=== PATIENT | male | born 1930 | race Caucasian/White ===

== ENCOUNTER 2017-01-20 10:09 | Emergency (ER) | payer MEDICARE ==
--- NOTE | 2017-01-20 12:47 | UC ---
Skin Complaint HPI - HPI Summary HPI Summary: PT HERE WITH WORSENING PAIN AND REDNESS TO LEFT LOWER EXTREMITY SINCE LAST NIGHT. NO FEVER. WAS ADMITT[place] [facility] [place] WITH STREPTOCOCCAL SEPTICEMIA LIKELY DUE TO LLE CELLULITIS. WAS D/C'D WITH KEFLEX AND SX IMPROVED BUT REDNESS NEVER FULLY RESOLVED. HOSPITAL STAY WAS COMPLICATED BY ACUTE RENAL FAILURE AND AFIB. 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 - SON Onset/Duration: Gradual Onset, Lasting Days, Still Present Timing: Constant Onset Severity: Moderate Current Severity: Moderate Pain Intensity: 4 Pain Scale Used: 0-10 Numeric Location: Other - LEFT LOWER LEG Character: Pain, Redness Aggravating: Touch Alleviating: Nothing Associated Signs & Symptoms: Positive: Negative - Allergy/Home Medications Allergies/Adverse Reactions: Allergies Allergy/AdvReac Type Severity Reaction Status Date / Time No Known Allergies Allergy Verified 01/20/17 11:28 Review of Systems Constitutional: Negative Skin: Other - ERYTHEMA LLE Respiratory: Negative Cardiovascular: Negative Gastrointestinal: Negative Musculoskeletal: Edema All Other Systems Reviewed And Are Negative: Yes PMH/Surg Hx/FS Hx/Imm Hx Endocrine History Of: Denies: Diabetes, Thyroid Disease Cardiovascular History Of: Reports: Cardiac Disorders, Hypertension Denies: Pacemaker/ICD Respiratory History Of: Denies: COPD Neurological History Of: Reports: CVA - Surgical History Surgical History: Yes Surgery Procedure, Year, and Place: Cataract Surgery; Right Hand Index Finger Surgery - Family History Known Family History: Positive: Cardiac Disease - [place] (father) - Social History Alcohol Use: None Substance Use Type: None Smoking Status (MU): Never Smoked Tobacco - Immunization History Most Recent Influenza Vaccination: Fall 2015 Most Recent Tetanus Shot: Unknown Most Recent Pneumonia Vaccination: 2016 Physical Exam Triage Information Reviewed: Yes Appearance: Well-Appearing, No Pain Distress, Well-Nourished Vital Signs: Initial Vital Signs Temp 97.7 F 01/20/17 11:22 Pulse 56 01/20/17 11:22 Resp 18 01/20/17 11:22 BP 137/51 01/20/17 11:22 Pulse Ox 98 01/20/17 11:22 Vital Signs Reviewed: Yes Eyes: Positive: Conjunctiva Clear ENT: Positive: Hearing grossly normal Neck: Positive: Supple Respiratory: Positive: No respiratory distress, No accessory muscle use Cardiovascular: Positive: Pulses Normal Abdomen Description: Positive: Soft Musculoskeletal: Positive: Edema @ - 1+ PITING EDEMA LLE, Other: - PALPABLE NODULES LEFT CALF. Neurological: Positive: Alert Psychological: Positive: Age Appropriate Behavior Skin: Positive: Other - ERYTHEMATOUS, TENDER ANTERIOR LLE. Course/Dx - Course Course Of Treatment: GIVEN RECENT HOSPITALIZATION FOR SEPSIS DUE TO LLE CELLULITIS WHICH HAS NOW RETURNED AND CONCERN FOR PHLEBITIS/DVT WILL SEND TO ER FOR FURTHER EVAL. - Diagnoses Provider Diagnoses: LEFT LOWER EXTREMITY CELLULITIS - Physician Notification/Consults Discussed Patient Care With: DR. ANA PETERSEN Time Discussed With Above Provider: 12:40 - TO [facility] [place] [facility] [place] PRIVATE CAR Instructed by Provider To: Will See In ED Discharge - Discharge Plan Condition: Stable Disposition: AGAINST MEDICAL ADVICE Referrals: Vel Rodrigez MD [Medical Doctor] -
[2017-01-20 13:19] VITALS: BP 116/59
== END 2017-01-20 12:55 | disposition left against medical advice (07) ==
LOC: UCEAST 10:09
DX: L03.116 Cellulitis of left lower limb (principal); R60.0 Localized edema; I10 Essential (primary) hypertension; Z86.73 Personal history of transient ischemic attack (TIA), and cerebral infarction without residual deficits; Z98.49 Cataract extraction status, unspecified eye
CPT/HCPCS: 99212; G0463

== ENCOUNTER 2017-01-20 13:28 | Inpatient (IN) | payer MEDICARE ==
[2017-01-20] MEDS ORDERED: NS 0.9% 1000 ML* 1,000 ML IV ONE (15:47)
[2017-01-20] MEDS ORDERED: Vancomycin(*) 1,000 MG in NS 0.9% 250 ML* 250 ML IVPB ONE (15:48)
[2017-01-20 16:43] LABS: Hematocrit 39 % (42-52); Mean Corpuscular HGB Conc 33 g/dl (31-36); Mean Corpuscular Hemoglobin 31 pg (27-31); Mean Corpuscular Volume 94 fL (80-94); Mean Platelet Volume 9 um3 (7.4-10.4); Red Blood Count 4.14 10^6/ul (4.0-5.4); Red Cell Distribution Width 14 % (10.5-15); White Blood Count 8.4 10^3/ul (3.5-10.8)
[2017-01-20 17:03] LABS: Albumin 3.5 g/dL (3.2-5.2); BUN/Creatinine Ratio 17.1 (8-20); C Reactive Protein 39.35 mg/L (< 5.00); EGFR African American 68.1 (>60); EGFR Non-African American 52.9 (>60); Globulin 3.7 g/dL (2-4); Potassium 4.1 mmol/L (3.5-5.0); Total Bilirubin 0.3 mg/dL (0.2-1.0); Total Protein 7.2 g/dL (6.4-8.9)
[2017-01-20 17:04] LABS: Troponin I 0.01 ng/mL (<0.04)
[2017-01-20] MEDS ORDERED: Acetaminophen TAB* 325 MG PO PRN (18:40)
[2017-01-20] MEDS ORDERED: Morphine INJ* 2 MG/ML 1 ML SYRINGE IV PRN (18:40)
[2017-01-20] MEDS ORDERED: oxyCODONE/Acetamin 5/325 MG* TAB PO PRN (18:40)
[2017-01-20] MEDS ORDERED: Vancomycin(*) 1,000 MG in NS 0.9% 250 ML* 250 ML IVPB SCH (19:00)
--- NOTE | 2017-01-20 19:30 | RAD ---
HISTORY: Redness of the distal calf COMPARISONS: January 02, 2017 TECHNIQUE: Multiple transverse and longitudinal ultrasound images were obtained of the left lower extremity from the level of the common femoral vein inferiorly through to the infrapopliteal veins using grayscale, color Doppler, and spectral Doppler imaging with and without compression and with augmentation. Comparison images were obtained of the contralateral common femoral vein. FINDINGS: This study is technically limited VEINS: There is questionable nonocclusive thrombus of the peroneal vein without extension into the popliteal or suprapopliteal venous system. The remainder of the venous system of the left lower extremity is compressible throughout its course, with normal flow on color Doppler imaging and normal response to augmentation on spectral Doppler imaging. SOFT TISSUES: There is subcutaneous edema of the calf OTHER FINDINGS: None. IMPRESSION: THERE IS QUESTIONABLE NONOCCLUSIVE THROMBUS OF THE PERONEAL VEIN WITHOUT EXTENSION INTO THE POPLITEAL OR SUPRAPOPLITEAL VENOUS SYSTEM
[2017-01-20] MEDS: Apixaban* 5 MG TAB PO SCH (21:18)
[2017-01-20] MEDS: Dronedarone TAB* 400 MG PO SCH (21:18)
[2017-01-20] MEDS ORDERED: Vancomycin per Pharmacy* NOTE FOLLOW UP PRN (21:43)
[2017-01-20] MEDS ORDERED: Vancomycin(*) 500 MG in NS 0.9% 250 ML* 250 ML IVPB ONE ×2 (22:00→22:30)
--- NOTE | 2017-01-20 23:26 | HP ---
HISTORY AND PHYSICAL: DATE OF ADMISSION: 01/20/17 PRIMARY CARE PROVIDER: Dr. Rosales. CHIEF COMPLAINT: Left leg cellulitis. HISTORY OF PRESENT ILLNESS: Mr. Wong is an 86-year-old male who was discharged from our facility on 01/08/17 with a diagnosis of streptococcus septicemia due to left lower extremity cellulitis. The patient at that point had blood cultures positive for Streptococcus agalactiae. He had a KELLI that showed [id number] aortic stenosis but no endocarditis. He was treated with IV antibiotics during the hospital stay and was placed on Keflex for a total of 7 days after discharge. His Keflex was just discontinued 3 days ago. The patient stated that the erythema on the left leg that was associated with the cellulitis still continues to be somewhat present but too much to left lower extent. He stated that he had a patch of redness of approximately 5 cm in diameter for the past 2 weeks. For the past 3 days, when the antibiotics were stopped, the patient developed increased warmth in the area, increased swelling in the area, as well as erythema with streaking. Currently, the patient 's area of erythema is approximately 20 to 30 cm in diameter. The patient also stated that his left leg had been swollen for the past 2 weeks. He had not been febrile at home and otherwise he feels at his baseline. He is somewhat deconditioned and he stated that he is doing physical therapy at home. The patient is currently placed originally for observation with a diagnosis of left lower extremity cellulitis. He has already received vancomycin in the ED. PAST MEDICAL HISTORY: 1. Obstructive sleep apnea, on CPAP. 2. 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 3. History of atrial fibrillation during his last hospital stay that ended on 01/08/17. The patient was cardioverted to sinus rhythm and anticoagulated ____ _ Eliquis. 4. History of elevated troponin during the last hospital stay, most likely related to demand ischemia. MEDICATIONS AT HOME: Include: 1. Eliquis 5 mg b.i.d. 2. Multaq 400 mg b.i.d. FAMILY HISTORY: Positive for mom who at the age of 70 of colon cancer and father at the age of 65 secondary to heart attack. SOCIAL HISTORY: The patient denies any tobacco, alcohol, or drug use. 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 He is a and he lives currently with his son. Both sons, and Gaetano, are his healthcare proxies. REVIEW OF SYSTEMS: Please see history of present illness. In addition to the above mentioned, the patient denies any chest pain or fevers. He stated that he was short of breath and feeling weak when he had atrial fibrillation in the hospital and he denies those symptoms right now. His left lower extremity had been swollen for the past 2 weeks. All the remaining 14 systems were reviewed with the patient and were otherwise negative. PHYSICAL EXAMINATION GENERAL: The patient is a very pleasant 86-year-old male, who is in no acute distress. Alert, awake, and oriented x3. VITAL SIGNS: Blood pressure of 134/40, heart rate of 67 and , respiratory rate 16, oxygen saturation 98% on room air, temperature 98.9. HEENT: Atraumatic, normocephalic. Eyes: Pupils equal and reactive to light and accommodation. Oropharynx: Clear. Mucosa moist. NECK: Supple. No JVD, no bruits bilaterally. RESPIRATORY: Clear to auscultation bilaterally. CARDIOVASCULAR: Regular rhythm. There is a 3/6 systolic ejection murmur noted on auscultation of the left upper sternal border. ABDOMEN: Soft, nontender. Bowel sounds present in all 4 quadrants. EXTREMITIES: There is left lower extremity edema and that is the left ankle edema extending to the left knee. There is also left foot edema. There is no other edema noted. NEUROLOGIC: Speech clear. Cranial nerves II through XII grossly intact. Motor strength is 5/5 bilaterally. SKIN: On evaluation of the skin, the patient has a small area of ecchymosis on the tip of the left second toe, possibly due to trauma. He has an erythema on the anterior aspect of the distal lower extremity in the diameter of approximately 30 cm. The area is tender to touch. There are no loculated areas. DIAGNOSTIC STUDIES/LAB DATA: Shows sodium of 136, potassium of 4.1, chloride 107, carbon dioxide 23, BUN 22, creatinine 1.29. Please note the patient's creatinine in the past had ranged between 1.1 to 1.3. CBC: White blood cell count of 8.4, hemoglobin of 13.0, hematocrit of 39, platelets of 263. Blood cultures are pending at the time of dictation. Left lower extremity venous Doppler study is pending at the time of dictation. ASSESSMENT AND PLAN: Recurrent cellulitis in a patient who has a history of Streptococcus agalactiae septicemia, treated within the past 2 weeks. The patient is going to be placed on overnight observation. Treated with vancomycin. Blood cultures are obtained and ID consult is going to be obtained in the morning. We will also check lower extremity Dopplers to rule out deep venous thrombosis. In regards to history of atrial fibrillation, the patient is going to be placed on telemetry monitored bed for time being, although he has been asymptomatic ever since his discharge. Eliquis and Multaq are going to be continued. In regards to current kidney disease which is mild and chronic, not significantly changed from prior. Obstructive sleep apnea. The patient is going to be continued on his home CPAP. DVT prophylaxis. The patient is going to be placed on Eliquis. We discussed code status with the patient and patient's son present in the room. They both agreed and the patient requests to be a full code. TIME SPENT: Approximately 68 minutes was spent on the admission of this patient , more than half the time was spent [id number] with the patient during the interview and physical exam. CC: Dr. Rosales; Dr. Rodrigez; Dr. Araujo; Dr. Lucero* [id number]/[facility] #: [id number] YASIR
[2017-01-21] MEDS ORDERED: Vancomycin(*) 1,000 MG in NS 0.9% 250 ML* 250 ML IVPB SCH (04:30)
[2017-01-21 06:34] LABS: Hematocrit 39 % (42-52); Hemoglobin 12.6 g/dl (14.0-18.0); Mean Corpuscular HGB Conc 33 g/dl (31-36); Mean Corpuscular Hemoglobin 31 pg (27-31); Mean Corpuscular Volume 95 fL (80-94); Mean Platelet Volume 9 um3 (7.4-10.4); Red Blood Count 4.07 10^6/ul (4.0-5.4); Red Cell Distribution Width 14 % (10.5-15); White Blood Count 9.1 10^3/ul (3.5-10.8)
[2017-01-21 06:37] LABS: Add Diff/Slide Review? Slide Review Added; Comments Flag Yes
[2017-01-21 06:50] LABS: BUN/Creatinine Ratio 16.2 (8-20); Calcium 8.3 mg/dL (8.6-10.3); EGFR African American 76.2 (>60); EGFR Non-African American 59.2 (>60); Potassium 4.4 mmol/L (3.5-5.0)
[2017-01-21] MEDS: Dronedarone TAB* 400 MG PO SCH ×2 (08:52→20:32)
[2017-01-21] MEDS: Apixaban* 5 MG TAB PO SCH ×2 (08:53→20:32)
--- NOTE | 2017-01-21 09:37 | PN ---
Progress Note - Progress Note SOAP: Subjective: DOS: 01/21/17 CC: leg pain HPI: 86 year old man with recent admission for left lower leg cellulitis and Grp B Strep bactermia, improved on IV antibiotics and then keflex which he finished end of last week, continued to improve through the weekend, redness was nearly gone and then had return of redness with calf pain worse with pressure on it and weight bearing. No fever, chills, sweats. Started on vancomycin overnight, this morning redness has receded significantly. No diarrhea or fever here. Objective: [] Vital Signs Temp 36.3 C 01/21/17 07:37 Pulse 55 01/21/17 07:37 Resp 20 01/21/17 08:00 BP 133/43 01/21/17 07:37 Pulse Ox 95 01/21/17 08:00 Intake & Output 01/20/17 01/21/17 01/21/17 18:59 06:59 18:59 Intake Total 250 562 Output Total 0 Balance 250 562 Weight 190 lb 188 lb 9.6 oz Intake: IV Fluids 250 277 IVPB 260 Oral 25 Output: Urine 0 Other: Estimated Void Medium Medium # Bowel Movements 0 1 Estimated Stool Amount Medium # Voids 1 Gen:Awake, no distress Neuro:AAOx3, moves all extremities HEENT:PERLL, MMM Neck:Supple Heart:RRR no murmur Lungs:CTA BL Abd:+BS NTND soft Skin: left lower leg diffuse edema and anterior and posterior 5 cm patch of erythema MSK: no left calf tenderness Laboratory Results - last 24 hr 01/20/17 01/20/17 01/20/17 16:23 16:23 16:23 WBC 8.4 RBC 4.14 Hgb 13.0 L Hct 39 L MCV 94 MCH 31 MCHC 33 RDW 14 Plt Count 263 MPV 9 Neut % (Auto) 52.3 Lymph % (Auto) 29.2 [place] % (Auto) 15.5 H Eos % (Auto) 1.8 Baso % (Auto) 1.2 Absolute Neuts (auto) 4.4 Absolute Lymphs (auto) 2.5 Absolute Monos (auto) 1.3 H Absolute Eos (auto) 0.2 Absolute Basos (auto) 0.1 Absolute Nucleated RBC 0 Nucleated RBC % 0 INR (Anticoag Therapy) 1.37 H Sodium 136 Potassium 4.1 Chloride 107 Carbon Dioxide 23 Anion Gap 6 BUN 22 Creatinine 1.29 H Est GFR ( Amer) 68.1 Est GFR (Non-Af Amer) 52.9 BUN/Creatinine Ratio 17.1 Glucose 86 Lactic Acid Calcium 9.0 Total Bilirubin 0.30 AST 20 ALT 21 Alkaline Phosphatase 67 Troponin I 0.01 C-Reactive Protein 39.35 H Total Protein 7.2 Albumin 3.5 Globulin 3.7 Albumin/Globulin Ratio 0.9 L 01/20/17 01/20/17 01/21/17 16:23 21:24 06:15 WBC 9.1 RBC 4.07 Hgb 12.6 L Hct 39 L MCV 95 H MCH 31 MCHC 33 RDW 14 Plt Count 225 MPV 9 Neut % (Auto) 56.9 Lymph % (Auto) 27.0 [place] % (Auto) 13.2 H Eos % (Auto) 1.8 Baso % (Auto) 1.1 Absolute Neuts (auto) 5.2 Absolute Lymphs (auto) 2.5 Absolute Monos (auto) 1.2 H Absolute Eos (auto) 0.2 Absolute Basos (auto) 0.1 Absolute Nucleated RBC 0 Nucleated RBC % 0 INR (Anticoag Therapy) Sodium Potassium Chloride Carbon Dioxide Anion Gap BUN Creatinine Est GFR ( Amer) Est GFR (Non-Af Amer) BUN/Creatinine Ratio Glucose Lactic Acid 1.4 1.0 Calcium Total Bilirubin AST ALT Alkaline Phosphatase Troponin I C-Reactive Protein Total Protein Albumin Globulin Albumin/Globulin Ratio 01/21/17 06:15 WBC RBC Hgb Hct MCV MCH MCHC RDW Plt Count MPV Neut % (Auto) Lymph % (Auto) [place] % (Auto) Eos % (Auto) Baso % (Auto) Absolute Neuts (auto) Absolute Lymphs (auto) Absolute Monos (auto) Absolute Eos (auto) Absolute Basos (auto) Absolute Nucleated RBC Nucleated RBC % INR (Anticoag Therapy) Sodium 136 Potassium 4.4 Chloride 109 Carbon Dioxide 21 L Anion Gap 6 BUN 19 Creatinine 1.17 Est GFR ( Amer) 76.2 Est GFR (Non-Af Amer) 59.2 BUN/Creatinine Ratio 16.2 Glucose 93 Lactic Acid Calcium 8.3 L Total Bilirubin AST ALT Alkaline Phosphatase Troponin I C-Reactive Protein Total Protein Albumin Globulin Albumin/Globulin Ratio Assessment: 1. left leg cellulitis, recurrence off antibiotics, no deep focus seen on US. Improving 2. Possible politeal vein thrombosis, though was on oral anticoagulant, ? contribution of inflammatory process 3. atrial fibrillation 4. elevated CRP Plan: 1. change vancomycin to ceftriaxone (ordered), will plan on longer course of PO antibiotics on discharge.
[2017-01-21] MEDS: cefTRIAXone VIAL(*) 1,000 MG in NS 0.9% 50 ML* 50 ML IVPB SCH (10:41)
--- NOTE | 2017-01-21 11:01 | PN ---
Subjective Date of Service: 01/21/17 Interval History: Pt feels much better. left leg edema almost resolved and the are of cellulitis has decreased significantly since yesterday noted to have asymtomatic 5 beat V Tach last night Objective Active Medications: Acetaminophen (Tylenol Tab*) 650 mg PO Q4H PRN PRN Reason: FEVER/PAIN Apixaban (Eliquis*) 5 mg PO BID [facility] Last Admin: 01/21/17 08:53 Dose: 5 mg Dronedarone (Multaq Tab*) 400 mg PO BID [facility] Last Admin: 01/21/17 08:52 Dose: 400 mg Ceftriaxone Sodium 1,000 mg/ (Sodium Chloride) 50 mls @ 200 mls/hr IVPB Q24H [facility] Last Admin: 01/21/17 10:41 Dose: 200 mls/hr Morphine Sulfate (Morphine Inj (Syringe)*) 1 mg IV Q4H PRN PRN Reason: PAIN Oxycodone/Acetaminophen (Percocet 5/325 Tab*) 1 tab PO Q4H PRN PRN Reason: Pain Pharmacy Consult (Vancomycin Per Pharmacy*) 1 note FOLLOW UP . PRN PRN Reason: PER PROTOCOL Pharmacy Profile Note (Vancomycin Trough Check) 1 note FOLLOW UP 0430 ONE Stop: 01/22/17 04:31 Vital Signs 01/20/17 01/20/17 01/20/17 19:57 20:00 23:48 Temperature 97.2 F 98.1 F Pulse Rate 60 50 Respiratory 20 16 Rate Blood Pressure 154/51 123/37 (mmHg) O2 Sat by Pulse 98 98 93 Oximetry 01/21/17 01/21/17 01/21/17 03:15 03:17 07:37 Temperature 98.1 F 97.6 F 97.4 F Pulse Rate 55 53 55 Respiratory 16 16 Rate Blood Pressure 130/44 125/41 133/43 (mmHg) O2 Sat by Pulse 96 95 Oximetry 01/21/17 08:00 Temperature Pulse Rate Respiratory 20 Rate Blood Pressure (mmHg) O2 Sat by Pulse 95 Oximetry Oxygen Devices in Use Now: None Appearance: 86 yo M in nAd, aAOx3 Eyes: No Scleral Icterus, PERRLA Ears/Nose/Mouth/Throat: NL Teeth, Lips, Gums, Mucous Membranes Moist Neck: NL Appearance and Movements; NL JVP, Trachea Midline Respiratory: Symmetrical Chest Expansion and Respiratory Effort, Clear to Auscultation Cardiovascular: NL Sounds; No Murmurs; No JVD, RRR Abdominal: NL Sounds; No Tenderness; No Distention, No Hepatosplenomegaly Lymphatic: No Cervical Adenopathy Extremities: No Edema, No Clubbing, Cyanosis Skin: No Nodules or Sclerosis, - - lef leg cellulits decreased to erythema of 10 cm in diam Neurological: Alert and Oriented x 3, NL Muscle Strength and Tone Result Diagrams: 01/21/17 06:15 01/21/17 06:15 Assess/Plan/Problems-Billing Assessment: 86 yo M with h/o PAF(s/p cardioversion early December 2016), DAVID with dx of cellulitis and Strep agalactiae septicemia (d/c'd after neg KELLI and cardioversion on 01/08/17) who was admitted with recurrence of cellulitis - Patient Problems (1) Cellulitis of left lower extremity Comment: Vancomycin changed to Ceftriaxone as per ID Cont inpatient stay till cx neg, then plan for 2-[address] Lucero following. Dopplers show possible nonoclusive partial DVT in left peroneal vein. suspect it was present previously when pt was placed on Eliquis 2 weeks ago for A. fib. Will cont Eliquis (2) Atrial fibrillation Comment: cardioverted 2 weeks ago. In NSR, cont telem 5 beat V. tach noted last night, will check Mg level, cont tlem. cont Multaq (3) CKD (chronic kidney disease) Comment: baseline renal function with creat 1.1-1.2 (4) Obstructive sleep apnea Comment: - Continue home CPAP. (5) DVT prophylaxis Comment: elquis Status and Disposition: OBV changed to inpatient. cont IV antibiotics, awaiting blood cx results.
[2017-01-21 11:10] LABS: Magnesium 2.1 mg/dL (1.9-2.7)
--- NOTE | 2017-01-21 22:28 | ED ---
Ra Vera Matthew, scribed for Julian Shields MD on 01/20/17 at 1608 . Lower Extremity - HPI Summary HPI Summary: An 86 y/o male presents to the ED with gradually worsening left lower extremity pain. The pain is rated 4/10 in severity. The patient finished an Abx course on 01/15. He states that his leg was improving, but began to worsen after finish the Abx. Associated symptoms include erythema and warmth. - History of Current Complaint Chief Complaint: EDExtremityLower Stated Complaint: LEFT LEG CELLULITIS FROM [facility] Time Seen by Provider: 01/20/17 15:19 Hx Obtained From: Patient Onset/Duration: Still Present Severity Initially: Moderate Severity Currently: Moderate Pain Intensity: 4 Pain Scale Used: 0-10 Numeric Timing: Constant Location: Is Discrete @ - left lower extremity Associated Signs And Symptoms: Positive: Redness, Other - warmth Aggravating Factor(s): Nothing Alleviating Factor(s): Other - Abx Able to Bear Weight: Yes - Allergies/Home Medications Allergies/Adverse Reactions: Allergies Allergy/AdvReac Type Severity Reaction Status Date / Time No Known Allergies Allergy Verified 01/20/17 11:28 PMH/Surg Hx/FS Hx/Imm Hx Endocrine/Hematology History: Denies: Hx Diabetes, Hx Thyroid Disease Cardiovascular History: Reports: Hx Hypertension Denies: Hx Pacemaker/ICD Respiratory History: Reports: Hx Seasonal Allergies, Hx Sleep Apnea Denies: Hx Chronic Obstructive Pulmonary Disease (COPD) Musculoskeletal History: Reports: Hx Arthritis Denies: Other Musculoskeletal History Sensory History: Reports: Hx Cataracts, Hx Contacts or Glasses, Hx Eye Injury, Hx Deafness, Hx Hearing Aid, Hx Hearing Problem Opthamlomology History: Reports: Hx Cataracts, Hx Contacts or Glasses, Hx Eye Injury Neurological History: Reports: Hx CVA Denies: Other Neuro Impairments/Disorders Psychiatric History: Denies: Hx Panic Disorder - Surgical History Surgery Procedure, Year, and Place: Cataract Surgery; Right Hand Index Finger Surgery - Immunization History Date of Tetanus Vaccine: PT STATES UNSURE Date of Influenza Vaccine: NONE Infectious Disease History: No Infectious Disease History: Denies: Hx Clostridium Difficile, Hx Hepatitis, Hx of Known/Suspected MRSA, Hx Tuberculosis, Hx Known/Suspected VRE, Traveled Outside the [place] in Last 30 Days - Family History Known Family History: Positive: Cardiac Disease - [place] (father) - Social History Alcohol Use: None Substance Use Type: Reports: None Smoking Status (MU): Never Smoked Tobacco Review of Systems Constitutional: Negative Eyes: Negative ENT: Negative Cardiovascular: Negative Respiratory: Negative Gastrointestinal: Negative Genitourinary: Negative Musculoskeletal: Negative Skin: Other - warm to touch Positive: Rash - left lower extremity Neurological: Negative Psychological: Normal All Other Systems Reviewed And Are Negative: Yes Physical Exam Triage Information Reviewed: Yes Vital Signs On Initial Exam: Initial Vitals Temp Pulse Resp BP Pulse Ox 97.7 F 59 18 153/52 98 01/20/17 13:31 01/20/17 13:31 01/20/17 13:31 01/20/17 13:31 01/20/17 13:31 Vital Signs Reviewed: Yes Appearance: Positive: Well-Appearing, No Pain Distress Skin: Positive: Other - erythema, warmth, and tenderness to palpitation of the left lower extermity; NO signs of abscess Head/Face: Positive: Normal Head/Face Inspection Eyes: Positive: EOMI, JAYA ENT: Positive: Normal ENT inspection Neck: Positive: Supple, Nontender Respiratory/Lung Sounds: Positive: Clear to Auscultation, Breath Sounds Present Cardiovascular: Positive: RRR Abdomen Description: Positive: Nontender, Soft Bowel Sounds: Positive: Present Musculoskeletal: Positive: Strength/ROM Intact Neurological: Positive: Alert, Oriented to Person Place, Time Psychiatric: Positive: Affect/Mood Appropriate Diagnostics - Vital Signs Vital Signs Temp Pulse Resp BP Pulse Ox 01/20/17 14:41 98.3 F 66 18 118/37 100 01/20/17 13:33 97.7 F 57 18 153/52 98 01/20/17 13:31 97.7 F 59 18 153/52 98 - Laboratory Lab Results: Lab Results 01/20/17 01/20/17 01/20/17 Range/Units 16:23 16:23 16:23 WBC 8.4 (3.5-10.8) 10^3/ul RBC 4.14 (4.0-5.4) 10^6/ul Hgb 13.0 L (14.0-18.0) g/dl Hct 39 L (42-52) % MCV 94 (80-94) fL MCH 31 (27-31) pg MCHC 33 (31-36) g/dl RDW 14 (10.5-15) % Plt Count 263 (150-450) 10^3/ul MPV 9 (7.4-10.4) um3 Neut % (Auto) 52.3 (38-83) % Lymph % (Auto) 29.2 (25-47) % [place]falf[place] % (Auto) 15.5 H (1-9) % Eos % (Auto) 1.8 (0-6) % Baso % (Auto) 1.2 (0-2) % Absolute Neuts (auto) 4.4 (1.5-7.7) 10^3/ul Absolute Lymphs (auto) 2.5 (1.0-4.8) 10^3/ul Absolute Monos (auto) 1.3 H (0-0.8) 10^3/ul Absolute Eos (auto) 0.2 (0-0.6) 10^3/ul Absolute Basos (auto) 0.1 (0-0.2) 10^3/ul Absolute Nucleated RBC 0 10^3/ul Nucleated RBC % 0 INR (Anticoag Therapy) 1.37 H (0.89-1.11) Sodium 136 (133-145) mmol/L Potassium 4.1 (3.5-5.0) mmol/L Chloride 107 (101-111) mmol/L Carbon Dioxide 23 (22-32) mmol/L Anion Gap 6 (2-11) mmol/L BUN 22 (6-24) mg/dL Creatinine 1.29 H (0.67-1.17) mg/dL Est GFR ( Amer) 68.1 (>60) Est GFR (Non-Af Amer) 52.9 (>60) BUN/Creatinine Ratio 17.1 (8-20) Glucose 86 (70-100) mg/dL Lactic Acid (0.5-2.0) mmol/L Calcium 9.0 (8.6-10.3) mg/dL Magnesium (1.9-2.7) mg/dL Total Bilirubin 0.30 (0.2-1.0) mg/dL AST 20 (13-39) U/L ALT 21 (7-52) U/L Alkaline Phosphatase 67 (34-104) U/L Troponin I 0.01 (<0.04) ng/mL C-Reactive Protein 39.35 H (< 5.00) mg/L Total Protein 7.2 (6.4-8.9) g/dL Albumin 3.5 (3.2-5.2) g/dL Globulin 3.7 (2-4) g/dL Albumin/Globulin Ratio 0.9 L (1-3) 01/20/17 01/20/17 01/21/17 Range/Units 16:23 21:24 06:15 WBC 9.1 (3.5-10.8) 10^3/ul RBC 4.07 (4.0-5.4) 10^6/ul Hgb 12.6 L (14.0-18.0) g/dl Hct 39 L (42-52) % MCV 95 H (80-94) fL MCH 31 (27-31) pg MCHC 33 (31-36) g/dl RDW 14 (10.5-15) % Plt Count 225 (150-450) 10^3/ul MPV 9 (7.4-10.4) um3 Neut % (Auto) 56.9 (38-83) % Lymph % (Auto) 27.0 (25-47) % [place] % (Auto) 13.2 H (1-9) % Eos % (Auto) 1.8 (0-6) % Baso % (Auto) 1.1 (0-2) % Absolute Neuts (auto) 5.2 (1.5-7.7) 10^3/ul Absolute Lymphs (auto) 2.5 (1.0-4.8) 10^3/ul Absolute Monos (auto) 1.2 H (0-0.8) 10^3/ul Absolute Eos (auto) 0.2 (0-0.6) 10^3/ul Absolute Basos (auto) 0.1 (0-0.2) 10^3/ul Absolute Nucleated RBC 0 10^3/ul Nucleated RBC % 0 INR (Anticoag Therapy) (0.89-1.11) Sodium (133-145) mmol/L Potassium (3.5-5.0) mmol/L Chloride (101-111) mmol/L Carbon Dioxide (22-32) mmol/L Anion Gap (2-11) mmol/L BUN (6-24) mg/dL Creatinine (0.67-1.17) mg/dL Est GFR ( Amer) (>60) Est GFR (Non-Af Amer) (>60) BUN/Creatinine Ratio (8-20) Glucose (70-100) mg/dL Lactic Acid 1.4 1.0 (0.5-2.0) mmol/L Calcium (8.6-10.3) mg/dL Magnesium (1.9-2.7) mg/dL Total Bilirubin (0.2-1.0) mg/dL AST (13-39) U/L ALT (7-52) U/L Alkaline Phosphatase (34-104) U/L Troponin I (<0.04) ng/mL C-Reactive Protein (< 5.00) mg/L Total Protein (6.4-8.9) g/dL Albumin (3.2-5.2) g/dL Globulin (2-4) g/dL Albumin/Globulin Ratio (1-3) // Range/Units 06:15 WBC (3.5-10.8) 10^3/ul RBC (4.0-5.4) 10^6/ul Hgb (14.0-18.0) g/dl Hct (42-52) % MCV (80-94) fL MCH (27-31) pg MCHC (31-36) g/dl RDW (10.5-15) % Plt Count (150-450) 10^3/ul MPV (7.4-10.4) um3 Neut % (Auto) (38-83) % Lymph % (Auto) (25-47) % [place] % (Auto) (1-9) % Eos % (Auto) (0-6) % Baso % (Auto) (0-2) % Absolute Neuts (auto) (1.5-7.7) 10^3/ul Absolute Lymphs (auto) (1.0-4.8) 10^3/ul Absolute Monos (auto) (0-0.8) 10^3/ul Absolute Eos (auto) (0-0.6) 10^3/ul Absolute Basos (auto) (0-0.2) 10^3/ul Absolute Nucleated RBC 10^3/ul Nucleated RBC % INR (Anticoag Therapy) (0.89-1.11) Sodium 136 (133-145) mmol/L Potassium 4.4 (3.5-5.0) mmol/L Chloride 109 (101-111) mmol/L Carbon Dioxide 21 L (22-32) mmol/L Anion Gap 6 (2-11) mmol/L BUN 19 (6-24) mg/dL Creatinine 1.17 (0.67-1.17) mg/dL Est GFR ( Amer) 76.2 (>60) Est GFR (Non-Af Amer) 59.2 (>60) BUN/Creatinine Ratio 16.2 (8-20) Glucose 93 (70-100) mg/dL Lactic Acid (0.5-2.0) mmol/L Calcium 8.3 L (8.6-10.3) mg/dL Magnesium 2.1 (1.9-2.7) mg/dL Total Bilirubin (0.2-1.0) mg/dL AST (13-39) U/L ALT (7-52) U/L Alkaline Phosphatase (34-104) U/L Troponin I (<0.04) ng/mL C-Reactive Protein (< 5.00) mg/L Total Protein (6.4-8.9) g/dL Albumin (3.2-5.2) g/dL Globulin (2-4) g/dL Albumin/Globulin Ratio (1-3) Result Diagrams: 01/21/17 06:15 01/21/17 06:15 Lab Statement: Any lab studies that have been ordered have been reviewed, and results considered in the medical decision making process. Lower Extremity Course/Dx - Course Course Of Treatment: Mr. Wong's cellulitis has returned and when hospitalized previously he was septicemic. I have asked the hspitalists to admit him for IV antibiotics. - Diagnoses Provider Diagnoses: Cellulitis - Physician Notifications Discussed Care of Patient With: Dr. Lyon (Hospitalist) at 17:46 -- Notified of patient's history and will admit the patient into her services. Discharge - Discharge Plan Condition: Stable Disposition: ADMITTED TO [facility] documentation as recorded by the Ra tristan Matthew accurately reflects the service I personally performed and the decisions made by me, Julian Shields MD.
--- NOTE | 2017-01-22 00:13 | PN ---
Progress Note - Progress Note Note: Paged by RN for HR in 30's - EKG junctional rhythm potentially. Asymptomatic. BP: 120s. Has been on multaq. Here for cellulitis - will start on IVFs and continue antibiotics.
[2017-01-22] MEDS ORDERED: NS 0.9% 1000 ML* 1,000 ML IV SCH (00:15)
[2017-01-22 01:25] LABS: Hematocrit 35 % (42-52); Hemoglobin 11.3 g/dl (14.0-18.0); Mean Corpuscular HGB Conc 33 g/dl (31-36); Mean Corpuscular Hemoglobin 31 pg (27-31); Mean Corpuscular Volume 95 fL (80-94); Mean Platelet Volume 8 um3 (7.4-10.4); Red Blood Count 3.67 10^6/ul (4.0-5.4); Red Cell Distribution Width 14 % (10.5-15)
[2017-01-22 01:34] LABS: BUN/Creatinine Ratio 17.6 (8-20); C Reactive Protein 24.94 mg/L (< 5.00); Calcium 8.2 mg/dL (8.6-10.3); EGFR African American 70.6 (>60); EGFR Non-African American 54.9 (>60); Potassium 4.3 mmol/L (3.5-5.0)
[2017-01-22 01:39] LABS: Add Diff/Slide Review? Slide Review Added; Comments Flag Yes
[2017-01-22] MEDS ORDERED: Vancomycin Trough Check NOTE FOLLOW UP ONE (04:30)
[2017-01-22 05:56] LABS: Magnesium 2.1 mg/dL (1.9-2.7)
[2017-01-22] MEDS: cefTRIAXone VIAL(*) 1,000 MG in NS 0.9% 50 ML* 50 ML IVPB SCH (09:34)
[2017-01-22] MEDS: Apixaban* 5 MG TAB PO SCH ×2 (09:36→20:41)
--- NOTE | 2017-01-22 10:47 | PN ---
Progress Note - Progress Note SOAP: Subjective: DOS: 01/22/17 CC: leg pain HPI: 86 year old man with recent admission for left lower leg cellulitis and Grp B Strep bactermia, improved on IV antibiotics and then keflex which he finished end of last week, continued to improve through the weekend, redness was nearly gone and then had return of redness with calf pain worse with pressure on it and weight bearing. Redness mostly gone except for an anterior and posterior area which are both still swollen and slightly tender. No fever, rash, or diarrhea. Overnight sinus kyra on tele. Objective: [] Vital Signs Temp 37.6 C 01/22/17 07:59 Pulse 51 01/22/17 07:59 Resp 20 01/22/17 07:59 BP 134/51 01/22/17 07:59 Pulse Ox 97 01/22/17 04:38 Intake & Output 01/21/17 01/22/17 01/22/17 18:59 06:59 18:59 Intake Total 1537 415 240 Balance 1537 415 240 Intake: IV Fluids 57 Oral 1480 415 240 Other: Estimated Void Medium Small Small # Bowel Movements 1 0 Estimated Stool Amount Medium Small Small # Voids 1 1 Gen:Awake, no distress Neuro:AAOx3, moves all extremities HEENT:PERLL, MMM Neck:Supple Heart:RRR no murmur Lungs:CTA BL Abd:+BS NTND soft Skin: left lower leg diffuse edema and anterior and posterior 5 cm patch of erythema no fluctuance or crepitus MSK: no left calf tenderness Laboratory Results - last 24 hr 01/21/17 01/22/17 01/22/17 06:15 01:10 01:10 WBC 8.0 RBC 3.67 L Hgb 11.3 L Hct 35 L MCV 95 H MCH 31 MCHC 33 RDW 14 Plt Count 221 MPV 8 Neut % (Auto) 56.9 Lymph % (Auto) 27.7 [place] % (Auto) 9.4 H Eos % (Auto) 3.5 Baso % (Auto) 2.5 H Absolute Neuts (auto) 4.5 Absolute Lymphs (auto) 2.2 Absolute Monos (auto) 0.8 Absolute Eos (auto) 0.3 Absolute Basos (auto) 0.2 Absolute Nucleated RBC 0 Nucleated RBC % 0 Sodium 136 Potassium 4.3 Chloride 108 Carbon Dioxide 24 Anion Gap 4 BUN 22 Creatinine 1.25 H Est GFR ( Amer) 70.6 Est GFR (Non-Af Amer) 54.9 BUN/Creatinine Ratio 17.6 Glucose 100 Calcium 8.2 L Magnesium 2.1 2.1 C-Reactive Protein 24.94 H Assessment: 1. left leg cellulitis, recurrence off antibiotics, no deep focus seen on US. Due to Grp B Strep, continuing to improve. 2. Possible politeal vein thrombosis, though was on oral anticoagulant, ? contribution of inflammatory process 3. atrial fibrillation 4. sinus bradycardia overnight 5. elevated CRP Plan: 1. change ceftriaxone to augmentin 500 mg po bid, 14 more days. 25 minutes face to face time >50% in counseling regarding antibiotic treatment for infection and monitoring of his leg symptoms.
--- NOTE | 2017-01-22 15:15 | PN ---
Subjective Date of Service: 01/22/17 Interval History: Pt is feeling well. Overnight he was noted to have low HR-he states he was unaware of this. He denies any lightheadedness, SOB or CP. He states he has had 2 loose BMs today. Objective Active Medications: Acetaminophen (Tylenol Tab*) 650 mg PO Q4H PRN PRN Reason: FEVER/PAIN Amoxicillin/Clavulanate Potassium (Augmentin Tab*) 500 mg PO BID MYRIAM Apixaban (Eliquis*) 5 mg PO BID MYRIAM Last Admin: 01/22/17 09:36 Dose: 5 mg Morphine Sulfate (Morphine Inj (Syringe)*) 1 mg IV Q4H PRN PRN Reason: PAIN Oxycodone/Acetaminophen (Percocet 5/325 Tab*) 1 tab PO Q4H PRN PRN Reason: Pain Vital Signs 01/21/17 01/21/17 01/21/17 16:08 19:12 19:46 Temperature 97.5 F 98.3 F Pulse Rate 53 47 Respiratory 18 20 20 Rate Blood Pressure 126/46 126/40 (mmHg) O2 Sat by Pulse 99 98 Oximetry 01/21/17 01/22/17 01/22/17 20:00 00:10 04:38 Temperature 98.6 F 97.5 F Pulse Rate 47 52 Respiratory 20 16 Rate Blood Pressure 121/37 115/45 (mmHg) O2 Sat by Pulse 99 96 97 Oximetry 01/22/17 01/22/17 01/22/17 07:59 08:00 11:16 Temperature 99.7 F 99.0 F Pulse Rate 51 53 Respiratory 20 18 18 Rate Blood Pressure 134/51 126/48 (mmHg) O2 Sat by Pulse 100 100 Oximetry Oxygen Devices in Use Now: None Appearance: Elderly male lying in bed, NAD Eyes: No Scleral Icterus Ears/Nose/Mouth/Throat: Mucous Membranes Moist Respiratory: Symmetrical Chest Expansion and Respiratory Effort, Clear to Auscultation Cardiovascular: NL Sounds; No Murmurs; No JVD, RRR, No Edema Abdominal: NL Sounds; No Tenderness; No Distention Extremities: No Clubbing, Cyanosis Skin: No Nodules or Sclerosis, - - tennis ball sized area of erythema L anterior /lateral lower leg, not hot to touch, mildly tender touch in the center of the area of erythema Neurological: Alert and Oriented x 3 Result Diagrams: 01/22/17 01:10 01/22/17 01:10 Additional Lab and Data: Lab Results 01/20/17 01/20/17 01/20/17 Range/Units 16:23 16:23 16:23 WBC 8.4 (3.5-10.8) 10^3/ul RBC 4.14 (4.0-5.4) 10^6/ul Hgb 13.0 L (14.0-18.0) g/dl Hct 39 L (42-52) % MCV 94 (80-94) fL MCH 31 (27-31) pg MCHC 33 (31-36) g/dl RDW 14 (10.5-15) % Plt Count 263 (150-450) 10^3/ul MPV 9 (7.4-10.4) um3 Neut % (Auto) 52.3 (38-83) % Lymph % (Auto) 29.2 (25-47) % [place] % (Auto) 15.5 H (1-9) % Eos % (Auto) 1.8 (0-6) % Baso % (Auto) 1.2 (0-2) % Absolute Neuts (auto) 4.4 (1.5-7.7) 10^3/ul Absolute Lymphs (auto) 2.5 (1.0-4.8) 10^3/ul Absolute Monos (auto) 1.3 H (0-0.8) 10^3/ul Absolute Eos (auto) 0.2 (0-0.6) 10^3/ul Absolute Basos (auto) 0.1 (0-0.2) 10^3/ul Absolute Nucleated RBC 0 10^3/ul Nucleated RBC % 0 INR (Anticoag Therapy) 1.37 H (0.89-1.11) Sodium 136 (133-145) mmol/L Potassium 4.1 (3.5-5.0) mmol/L Chloride 107 (101-111) mmol/L Carbon Dioxide 23 (22-32) mmol/L Anion Gap 6 (2-11) mmol/L BUN 22 (6-24) mg/dL Creatinine 1.29 H (0.67-1.17) mg/dL Est GFR ( Amer) 68.1 (>60) Est GFR (Non-Af Amer) 52.9 (>60) BUN/Creatinine Ratio 17.1 (8-20) Glucose 86 (70-100) mg/dL Lactic Acid (0.5-2.0) mmol/L Calcium 9.0 (8.6-10.3) mg/dL Magnesium (1.9-2.7) mg/dL Total Bilirubin 0.30 (0.2-1.0) mg/dL AST 20 (13-39) U/L ALT 21 (7-52) U/L Alkaline Phosphatase 67 (34-104) U/L Troponin I 0.01 (<0.04) ng/mL C-Reactive Protein 39.35 H (< 5.00) mg/L Total Protein 7.2 (6.4-8.9) g/dL Albumin 3.5 (3.2-5.2) g/dL Globulin 3.7 (2-4) g/dL Albumin/Globulin Ratio 0.9 L (1-3) 01/20/17 01/20/17 01/21/17 Range/Units 16:23 21:24 06:15 WBC 9.1 (3.5-10.8) 10^3/ul RBC 4.07 (4.0-5.4) 10^6/ul Hgb 12.6 L (14.0-18.0) g/dl Hct 39 L (42-52) % MCV 95 H (80-94) fL MCH 31 (27-31) pg MCHC 33 (31-36) g/dl RDW 14 (10.5-15) % Plt Count 225 (150-450) 10^3/ul MPV 9 (7.4-10.4) um3 Neut % (Auto) 56.9 (38-83) % Lymph % (Auto) 27.0 (25-47) % [place] % (Auto) 13.2 H (1-9) % Eos % (Auto) 1.8 (0-6) % Baso % (Auto) 1.1 (0-2) % Absolute Neuts (auto) 5.2 (1.5-7.7) 10^3/ul Absolute Lymphs (auto) 2.5 (1.0-4.8) 10^3/ul Absolute Monos (auto) 1.2 H (0-0.8) 10^3/ul Absolute Eos (auto) 0.2 (0-0.6) 10^3/ul Absolute Basos (auto) 0.1 (0-0.2) 10^3/ul Absolute Nucleated RBC 0 10^3/ul Nucleated RBC % 0 INR (Anticoag Therapy) (0.89-1.11) Sodium (133-145) mmol/L Potassium (3.5-5.0) mmol/L Chloride (101-111) mmol/L Carbon Dioxide (22-32) mmol/L Anion Gap (2-11) mmol/L BUN (6-24) mg/dL Creatinine (0.67-1.17) mg/dL Est GFR ( Amer) (>60) Est GFR (Non-Af Amer) (>60) BUN/Creatinine Ratio (8-20) Glucose (70-100) mg/dL Lactic Acid 1.4 1.0 (0.5-2.0) mmol/L Calcium (8.6-10.3) mg/dL Magnesium (1.9-2.7) mg/dL Total Bilirubin (0.2-1.0) mg/dL AST (13-39) U/L ALT (7-52) U/L Alkaline Phosphatase (34-104) U/L Troponin I (<0.04) ng/mL C-Reactive Protein (< 5.00) mg/L Total Protein (6.4-8.9) g/dL Albumin (3.2-5.2) g/dL Globulin (2-4) g/dL Albumin/Globulin Ratio (1-3) // Range/Units 06:15 WBC (3.5-10.8) 10^3/ul RBC (4.0-5.4) 10^6/ul Hgb (14.0-18.0) g/dl Hct (42-52) % MCV (80-94) fL MCH (27-31) pg MCHC (31-36) g/dl RDW (10.5-15) % Plt Count (150-450) 10^3/ul MPV (7.4-10.4) um3 Neut % (Auto) (38-83) % Lymph % (Auto) (25-47) % [place] % (Auto) (1-9) % Eos % (Auto) (0-6) % Baso % (Auto) (0-2) % Absolute Neuts (auto) (1.5-7.7) 10^3/ul Absolute Lymphs (auto) (1.0-4.8) 10^3/ul Absolute Monos (auto) (0-0.8) 10^3/ul Absolute Eos (auto) (0-0.6) 10^3/ul Absolute Basos (auto) (0-0.2) 10^3/ul Absolute Nucleated RBC 10^3/ul Nucleated RBC % INR (Anticoag Therapy) (0.89-1.11) Sodium 136 (133-145) mmol/L Potassium 4.4 (3.5-5.0) mmol/L Chloride 109 (101-111) mmol/L Carbon Dioxide 21 L (22-32) mmol/L Anion Gap 6 (2-11) mmol/L BUN 19 (6-24) mg/dL Creatinine 1.17 (0.67-1.17) mg/dL Est GFR ( Amer) 76.2 (>60) Est GFR (Non-Af Amer) 59.2 (>60) BUN/Creatinine Ratio 16.2 (8-20) Glucose 93 (70-100) mg/dL Lactic Acid (0.5-2.0) mmol/L Calcium 8.3 L (8.6-10.3) mg/dL Magnesium 2.1 (1.9-2.7) mg/dL Total Bilirubin (0.2-1.0) mg/dL AST (13-39) U/L ALT (7-52) U/L Alkaline Phosphatase (34-104) U/L Troponin I (<0.04) ng/mL C-Reactive Protein (< 5.00) mg/L Total Protein (6.4-8.9) g/dL Albumin (3.2-5.2) g/dL Globulin (2-4) g/dL Albumin/Globulin Ratio (1-3) Assess/Plan/Problems-Billing Mr Wong is an 86 yo M with h/o PAF(s/p cardioversion early December 2016), DAVID with dx of cellulitis and Strep agalactiae septicemia (d/c'd after neg KELLI and cardioversion on 01/08/17) who was admitted with recurrence of cellulitis. - Patient Problems (1) Cellulitis of left lower extremity Current Visit: Yes Status: Acute Code(s): L03.116 - CELLULITIS OF LEFT LOWER LIMB SNOMED Code(s): 276458562 Comment: Improved from admission. Plan is for 2 weeks of augmentin. Continue to follow the appearance of the cellulitis. Follow up with Dr. Lucero as an outpatient. (2) Atrial fibrillation Current Visit: Yes Status: Acute Code(s): I48.91 - UNSPECIFIED ATRIAL FIBRILLATION SNOMED Code(s): 49786089 Comment: Pt remains in NSR. Multaq stopped last night due to bradycardia. Continue eliquis. May need follow up with cardiology if he continues to have bradycardia. (3) CKD (chronic kidney disease) Current Visit: Yes Status: Acute Code(s): N18.9 - CHRONIC KIDNEY DISEASE, UNSPECIFIED SNOMED Code(s): 418099676 Comment: Creatinine is close to baseline. Continue to monitor. (4) Hypertension Current Visit: Yes Status: Acute Code(s): I10 - ESSENTIAL (PRIMARY) HYPERTENSION SNOMED Code(s): 76112569 Comment: BP is under good control without medications. Continue to follow. (5) Obstructive sleep apnea Current Visit: Yes Status: Acute Code(s): G47.33 - OBSTRUCTIVE SLEEP APNEA ( ADULT) (PEDIATRIC) SNOMED Code(s): 19839344 Comment: Continue home CPAP. (6) DVT prophylaxis Current Visit: Yes Status: Acute Code(s): BYO2118 - SNOMED Code(s): 092850378 Comment: beth (7) Full code status Current Visit: Yes Status: Acute Code(s): Z78.9 - OTHER SPECIFIED HEALTH STATUS SNOMED Code(s): 088374914 Status and Disposition: .
[2017-01-22] MEDS ORDERED: CMCS Melatonin (NF) 3 MG TAB PO SCH (23:45)
[2017-01-23] MEDS: Apixaban* 5 MG TAB PO SCH (08:08)
[2017-01-23] MEDS ORDERED: Amoxicillin/Clavulanate TAB* 500 MG PO SCH (09:00)
[2017-01-23 13:29] VITALS: BP 143/45
--- NOTE | 2017-01-23 18:13 | CONS ---
CC: Dr. Rosales; Dr. Araujo CARDIOLOGY CONSULTATION: DATE OF CONSULT: 01/23/17 PATIENT OF: Dr. Rosales and Dr. Araujo. REASON FOR EVALUATION: Tachy-kyra syndrome and aortic stenosis. HISTORY OF PRESENT ILLNESS: This is a very pleasant 86-year-old gentleman who was recently seen in the hospital for cellulitis of his left lower leg. He was infected and admitted and developed AFib with a rapid ventricular response during a coughing fit. Apparently, he was asymptomatic, but his blood pressures were low. He was treated with fluids and rate control. Because of low blood pressures, he underwent a KELLI-guided cardioversion by Dr. Araujo, that was performed on January 07. At that time, he had [id number] LVH, EF of 50% to 55%, spontaneous contrast present in left atrium and appendage and there was concern for aortic stenosis, at least moderate , possibly greater. The pulmonary valve area is 1.2 sq cm, severe leaflet calcification, mild MR, [id number] TR, grade 4 atheroma greater than 5 mm in the ascending aorta and in the transverse aorta. RV systolic pressure estimated at 30. He was successfully converted to sinus rhythm. Of note, a transthoracic echo performed on January 04 revealed the following: mild hypokinesis, EF 45% to 50% , mild concentric LVH, mildly reduced RV systolic function, aortic valve appeared severely restricted. The peak velocity in July 2015 of 4.1 m/sec based on the suspicion of severe aortic stenosis. Compared to the previous study of July 2005, the patient appears to be in AFib with a mildly reduced LVEF compared to normal sinus rhythm and normal EF previously. The patient apparently improved. He got 2 weeks of antibiotics as an outpatient. He was treated with some rate control agents as well as Multaq, but developed bradycardia to the 40s and his rate control agents were held. Over the 3 days prior to the admission, he developed increased warmth and swelling in the area where the cellulitis was in the left lower leg approximately 20 to 30 cm in diameter. He was readmitted on the . He was noted to have sinus slowing to the 30s on Multaq, which was discontinued earlier this admission; however, he continued to have those pauses even off the Multaq and a consult was requested. He denies syncope, near syncope, or exercise intolerance. He had a stroke back in July 2014. At that time, he had a pontine infarct and had some balance and speech issues which improved. He continues to have some disequilibrium, but is able to walk, sometimes using assistance of a cane. He denies chest pain, shortness of breath, syncope, or near syncope and in fact is participating in a clinical study at [facility] where he is walking at treadmill for 5 minutes at a time 3 days a week. He says that ordinarily he can go out and walk for 15 to 20 minutes on his own slowly. 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 He was cardioverted and anticoagulated on Eliquis; history of mildly elevated troponin thought to be related to demand ischemia, and in fact, his troponin during that admission was 0.07, peaked at 0.52, came down to 0.27 on January 04, it was 0.01 this admission. PAST SURGICAL HISTORY: His only surgery includes cataract surgery. MEDICATIONS: As an outpatient include: 1. Dronedarone 400 mg b.i.d. 2. Eliquis 5 mg b.i.d. His medications as inpatient include: 1. Augmentin 500 mg b.i.d. 2. Eliquis. 3. Acetaminophen. 4. Morphine. 5. Oxycodone/acetaminophen. FAMILY HISTORY: Father of ID at 65. Mother at 72 of colon cancer. His 2 brothers and a sister are alive. One half-brother . No premature coronary artery disease. SOCIAL HISTORY: He drinks half-caffeinated coffee 1 or 2 cups a day. He has rare alcohol, has not had any since the stroke. He is and lives on his own in an apartment in the basement of his son's house. He has 3 sons, two of whom live in [place]. PHYSICAL EXAM: He is a well-developed, obese gentleman in no apparent distress. Blood pressure 143/45, pulse of 55. Atraumatic, normocephalic. Extraocular muscles intact. Sclerae anicteric. No significant JVD. Carotids: Somewhat delayed and diminished with transmitted murmurs or bruits bilaterally. Cardiac Exam: S1, S2 with a 3/6 late peaking harsh systolic murmur at the base radiating across the precordium. Chest was clear. Abdomen: Obese. Bowel sounds present. Nontender. Femoral pulses intact with bruit on the right. Distal pulses diminished, but present. No edema on the right. Trace edema on the left with resolving cellulitis. Motor strength 5/5 bilaterally. Deep tendon reflexes 2/4. Alert and oriented x3. DIAGNOSTIC STUDIES/LAB DATA: Include BUN of 22, creatinine of 1.25, calcium of 8.2, CRP of 24.94 down from 39.35 on admission and down from 75 on January 02. White count of 8, hemoglobin 11.3, hematocrit of 35, platelet count of 221. EKG revealed sinus bradycardia, 37, on 01/21/17 with an APC and nonspecific ST- T changes. IMPRESSION: Mr. Wong has aortic stenosis of at least moderate perhaps severe degree as well as sick sinus syndrome. Despite those symptoms, he appears to be fairly well compensated at present. I am concerned about the potential for tachycardia causing ischemia and infarct as well as decreased cardiac output in the setting of aortic stenosis. I discussed, however, he does have an active infection which is resolving. As noted by Dr. Araujo, he may eventually require intervention for either his aortic stenosis or tachy-kyra syndrome. We would like to defer that until his ID status has been stabilized. We discussed at length the potential for his aortic stenosis to progress and cause limitation and increase risk for morbidity and mortality. We also discussed the potential for the tachy- kyra syndrome to progress and cause symptoms. Given his lack of definitive symptoms at present, I suggest that we allow the infection to resolve with close monitoring and acknowledging that he probably will benefit from a pacemaker sometime in the near future that will allow us to prevent bradycardia while treating his tachyarrhythmias. For the time being, I recommend the following: I would withhold the dronedarone for now given his low resting heart rates on the dronedarone. I asked him to carefully monitor his heart rate, symptoms, and blood pressures and report any recurrence of tachyarrhythmias. He is to follow up with Dr. Araujo for consideration of pacemaker implantation for his tachy-kyra syndrome. We talked about options for replacing his aortic valve given his age and diffuse atheromatous disease of the aorta and recent infection, he would be at increased risk at a major operative procedure or the TAVR. We will defer decision on that for the time being. If there is still uncertainty as to whether he is symptomatic from his aortic valve or not, a symptom-limited, low-level exercise test may be helpful in evaluating for hemodynamic compromise with exercise. I asked him to walk around the [place] a couple of times now to see if he is stable enough for discharge. [id number]/[facility] #: [id number] Discussed at length with patient and his son at the bedside. MOSHE 5.5.17 MTDMichelle
--- NOTE | 2017-01-24 04:26 | DS ---
DISCHARGE SUMMARY: DATE OF ADMISSION: 01/20/17 DATE OF DISCHARGE: 01/23/17 PRIMARY CARE PROVIDERS: Dr. Rosales, transitioning to Dr. Rodrigez. PRINCIPAL DIAGNOSES: 1. Left lower extremity cellulitis. 2. Sinus bradycardia with sinus pauses. 3. Severe aortic stenosis. 4. History of atrial fibrillation. DISCHARGE MEDICATIONS: 1. Eliquis 5 mg p.o. b.i.d. 2. Augmentin 500 mg p.o. twice daily x13 days. 3. Tylenol 650 mg p.o. q.4 hours p.r.n. pain. HOSPITAL COURSE: Mr. Wong is an 86-year-old male who was recently hospitalized from 01/02/17 through 01/08/17 at which time he was treated for group B strep cellulitis with associated bacteremia and sepsis, who was sent out on oral Keflex and completed this course of antibiotics a few days prior to admission where he was then noted to again have recurrence of redness of the left lower extremity. The patient was brought back for reevaluation of this. The patient was admitted to the hospital for treatment of the recurrent cellulitis. He was seen in consultation by Dr. Lucero who recommended keeping him on ceftriaxone. The patient was ultimately transitioned over to Augmentin and will continue on this for a 2-week course. The patient has had some improvement in the erythema of his left lower extremity; however, it is still present. This; however, is no longer hot or swollen. During the course of the hospitalization, the patient was noted to be in sinus bradycardia with frequent pauses of 2 to 3 seconds. The patient had been on Multaq, as during his last hospitalization he developed atrial fibrillation and required cardioversion. The patient's Multaq was discontinued due to the potential for bradycardia with this medication. He has been maintained on his usual dose of Eliquis. Because of the sinus pauses, I did ask for cardiology consultation which was performed on the day of discharge. The patient at this point has been recommended to continue treatment for the cellulitis and follow up with Cardiology as an outpatient to determine if he would benefit from permanent pacemaker due to his low heart rate and possible aortic valve replacement due to the finding of severe aortic stenosis during the course of his last hospitalization. At this point, the patient is asymptomatic from both of these standpoints. Therefore, watchful waiting will be the plan. I have recommended that the patient follow up with Dr. Meneses in the next approximate 1 month. At this point, the patient was felt to be stable for discharge home. On the day of discharge, the patient's physical exam is as follows. Blood pressure 143/45, pulse 55, respirations 24 and temperature 98.2. The patient is alert, sitting up in a chair, eating dinner. The patient's cardiac exam reveals a bradycardic rhythm with a 3/6 systolic murmur, heard best at the right upper sternal border. Breath sounds are clear bilaterally. His abdomen was soft and nontender. The patient's left lower extremity does have an area of darker erythema than the day prior. There is some wound skin-like changes to the area overlying the erythema. This not hot to touch. There is no significant swelling of this area either. The patient is alert, awake and appropriate. FOLLOWUP CONCERNS: The patient is being discharged home today, 01/23/17. He is to follow up with Dr. Rodrigez on 02/03/17. ACTIVITY LEVEL: As tolerated. DIET: Regular. CONDITION ON DISCHARGE: Stable. TIME SPENT: Thirty-five minutes was spent discharging this patient. CC: Dr. Rodrigez; Dr. Rosales* [id number]/[facility] #: [id number] [facility]
== END 2017-01-23 18:24 | disposition home or self-care (01) | DRG 603 ==
LOC: ED 13:28 → MEDTELE 17:51 → OBSVTOIN 01-21 10:35
PROVIDERS: ADMIT Internal Medicine; ATTEND Hospitalist
DX: L03.116 Cellulitis of left lower limb (principal); I49.5 Sick sinus syndrome; I48.91 Unspecified atrial fibrillation; M19.90 Unspecified osteoarthritis, unspecified site; H91.90 Unspecified hearing loss, unspecified ear; Z98.42 Cataract extraction status, left eye; Z98.41 Cataract extraction status, right eye; Z86.73 Personal history of transient ischemic attack (TIA), and cerebral infarction without residual deficits; Z82.49 Family history of ischemic heart disease and other diseases of the circulatory system; G47.33 Obstructive sleep apnea (adult) (pediatric); Z80.0 Family history of malignant neoplasm of digestive organs; I12.9 Hypertensive chronic kidney disease with stage 1 through stage 4 chronic kidney disease, or unspecified chronic kidney disease; N18.9 Chronic kidney disease, unspecified; I08.3 Combined rheumatic disorders of mitral, aortic and tricuspid valves
CPT/HCPCS: 36415; 80048; 80053; 83605; 83735; 84484; 85025; 85610; 86140; 87040; 93005; 94660; 99212; A9270-GY; G0378; G0463; J0696; J3370

== ENCOUNTER 2017-07-12 09:28 | Emergency (ER) | payer MEDICARE ==
[2017-07-12 10:00] VITALS: BP 138/54
--- NOTE | 2017-07-12 11:35 | UC ---
Brooke Vera Emily, scribed for Rebekah Neal DO on 07/12/17 at 1014 . Dental HPI - HPI Summary HPI Summary: This patient is an 87 year old M presenting to urgent care with a chief complaint of L upper tooth pain that began 2 days ago. 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 The CC is described as a sharp pain. The patient rates the pain 3/10 in severity. Symptoms aggravated by nothing. Symptoms alleviated by nothing. Patient reports swelling in L face, feeling run down, and swelling below L eye. Patient denies fever, chills, sore throat, eye ache, vision problems, eye discharge, nausea, vomiting, and CP. Pt denies any recent falls or episodes of confusion. Medications reviewed this visit. - History of Current Complaint Chief Complaint: UCGeneralIllness Stated Complaint: SWOLLEN FACE Time Seen by Provider: 07/12/17 10:01 Hx Obtained From: Patient Onset/Duration: Sudden Onset, Lasting Days, Still Present Severity: Moderate Pain Intensity: 3 Pain Scale Used: 0-10 Numeric Aggravating Factor(s): Nothing Alleviating Factor(s): Nothing - Allergies/Home Medications Allergies/Adverse Reactions: Allergies Allergy/AdvReac Type Severity Reaction Status Date / Time No Known Allergies Allergy Verified 07/12/17 09:55 PMH/Surg Hx/FS Hx/Imm Hx - Additional Past Medical History Additional PMH: Septicemia Previously Healthy: No Cardiovascular History: Hypertension Neurological History: Other Other Neurological History: Stroke - Surgical History Surgical History: Yes Surgery Procedure, Year, and Place: Cataract Surgery; Right Hand Index Finger Surgery - Family History Known Family History: Positive: Cardiac Disease - [place] (father) Family History: Colon Cancer - Social History Occupation: Retired Lives: With Family Alcohol Use: None Substance Use Type: None Smoking Status (MU): Never Smoked Tobacco - Immunization History Most Recent Influenza Vaccination: Fall 2015 Most Recent Tetanus Shot: Unknown Most Recent Pneumonia Vaccination: 2016 Review of Systems Constitutional: Other - Feeling run down. Negative fever and chills Skin: Other - Positive swelling below L eye and swelling in L face ENT: Other - Negative sore throat, eye ache, vision problems, and eye discharge. Cardiovascular: Other - Negative CP Gastrointestinal: Other - Negative nausea and vomiting All Other Systems Reviewed And Are Negative: Yes Physical Exam Triage Information Reviewed: Yes Appearance: Well-Appearing, No Pain Distress, Well-Nourished Vital Signs: Initial Vital Signs Temp 97.9 F 07/12/17 09:55 Pulse 61 07/12/17 09:55 Resp 16 07/12/17 09:55 BP 138/54 07/12/17 09:55 Pulse Ox 98 07/12/17 09:55 Vital Signs Reviewed: Yes Eyes: Positive: Conjunctiva Clear. Negative: Discharge ENT: Positive: Hearing grossly normal, TMs normal. Negative: Tonsillar swelling , Tonsillar exudate, Trismus, Muffled/hoarse voice Dental Exam: Other - Obvious swelling over left mandible. Some subcortical congestion with erythema which was nontender and negative for calor (appears to be dependent edema). Tenderness to percussion of tooth number 13. Abscess noted over tooth number 13. Neck exam: Normal Neck: Positive: Supple Respiratory: Positive: Lungs clear, Normal breath sounds, No respiratory distress, No accessory muscle use Cardiovascular: Positive: RRR, No Murmur Musculoskeletal Exam: Normal Neurological: Positive: Alert, Muscle Tone Normal Psychological Exam: Normal Psychological: Positive: Age Appropriate Behavior Skin Exam: Normal Skin: Positive: Other - Warm, Dry, Normal Color Dental Complaint Course/Dx - Course Course Of Treatment: This patient is an 87 year old M presenting to urgent care with a chief complaint of L upper tooth pain that began 2 days ago. 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 The CC is described as a sharp pain. The patient rates the pain 3/ 10 in severity. Symptoms aggravated by nothing. Symptoms alleviated by nothing. Patient reports swelling in face, general weakness, and swelling below L eye. Patient denies fever, chills, sore throat, eye ache, vision problems, eye discharge, nausea, vomiting, and CP. Pt denies any recent falls or episodes of confusion. Medications reviewed this visit. Physical Exam Findings. Obvious swelling over left mandible. Some subcortical congestion with erythema which was nontender and negative for calor (appears to independent edema). Tenderness to percussion of tooth number 13. Abscess noted over tooth number 13. Medical Decision Making. Patient will be discharged with prescription for Augmentin and follow up from PCP. The patient is agreeable with this plan. - Differential Dx/Diagnosis Differential Diagnosis/Dx: Dental Abscess, Dental Caries Provider Diagnoses: Dental Abscess Discharge - Discharge Plan Condition: Stable Disposition: HOME Prescriptions: Amoxicillin/Clavulanate TAB* [Augmentin TAB 875*] 875 mg PO BID #20 tab Patient Education Materials: Dental Abscess (ED) Referrals: Jian Rosales MD [Primary Care Provider] - If Needed Additional Instructions: AUGMENTIN: Augmentin is a mixture of amoxicillin and clavulanate. Amoxicillin is a member of the penicillin family. It covers the germs likely to cause ear, bronchial, and urinary infections better than plain penicillin. The addition of clavulanate allows it to cover staph infections of the skin, as well as resistant cases of ear and sinus infections. Your physician has chosen Augmentin for you because of the special nature of your situation. Augmentin is best taken with meals. Nausea after taking the medication is rare, but can occur. Diarrhea can occur, particularly in small children. Vaginal yeast infections, and oral thrush in infants are also common. Contact your physician if these problems occur. Allergy to penicillins is common. If you have had an allergic reaction to any drug of the penicillin family, you should never take any other penicillin. Notify your doctor at once if you develop hives, shortness of breath, swelling, or faintness. ANYTIME YOU TAKE AN ANTIBIOTIC, IT IS IMPORTANT TO REPLENISH THE BODY'S SUPPLY OF "GOOD BACTERIA." YOU CAN GET GOOD BACTERIA FROM HIGH QUALITY CULTURED FOODS SUCH LOCAL YOGURT, SOUR KRAUT, RADHA MINESH, NATURALLY FERMENTED PICKLES AND PROBIOTIC DRINKS. YOU CAN ALSO GET GOOD BACTERIA FROM A PROBIOTIC SUPPLEMENT. FOLLOW UP YOU WILL NEED TO FOLLOW UP WITH A DENTIST. PLEASE CALL YOUR DENTIST TO MAKE AN APPOINTMENT TO BE SEEN SOON POSSIBLE. The documentation as recorded by the Brooke tristan Emily accurately reflects the service I personally performed and the decisions made by me, Rebekah Neal DO.
== END 2017-07-12 10:37 | disposition home or self-care (01) ==
LOC: UCEAST 09:28
DX: K04.7 Periapical abscess without sinus (principal); I10 Essential (primary) hypertension; Z86.73 Personal history of transient ischemic attack (TIA), and cerebral infarction without residual deficits
CPT/HCPCS: 99212; G0463

== ENCOUNTER 2018-08-18 23:01 | Observation (INO) | payer MEDICARE ==
--- OUTSIDE RECORDS SUMMARY | 2018-08-18 23:19 | XMS REPORT | Continuity of Care Document ---
:1930 External Reference #:[id number] Author Name RhettMarissa sauceda Care Team Providers Name Role Phone Vel Rodrigez MD Primary Care Physician Unavailable Payers Type Date Identification Numbers Payment Provider Subscriber Effective: Policy Number: [id number] Medicare Blue Ppo Eugene Wong 2016 Group Number: [id number] [address] [address] PayID: [id number] [place] [address] Advance Directives Type Date Description Status Comment Other Directive 02/16/2018 Health Care Proxy Current and Verified Problems Date Description Provider Status Onset: 07/15/2018 Repair of aortic valve with Vel Rodrigez M.D.,LOIS Active tissue graft Note: TAVR Onset: 10/15/2017 Coronary atherosclerosis Vel Rodrigez M.D.,LOIS Active Note: stents X2, prox RCA and mid-LAD Onset: 08/09/2014 Cerebrovascular accident Ketan Murphy M.D. Active Note: L hand coolness, balance issues, mild dysarthria residual. Onset: 02/03/2017 Aortic valve stenosis Vel Rodrigez M.D.,LOIS Active Onset: 02/03/2017 Paroxysmal atrial fibrillation Vel Rodrigez M.D., LOIS Active Onset: 02/03/2017 Sick sinus syndrome Vel Rodrigez M.D.,LOIS Active Note: ? Onset: 02/03/2017 Sleep apnea Vel Rodrigez M.D.,LOIS Active Family History Date Family Member(s) Problem(s) Comments Father due to NM () - at age of 62 Mother due to Colon Cancer () - at age of 72 Siblings 4 First Brother Diabetes Type II Second Brother due to Brain Cancer () - and post- WWII injuries Third Brother Kidney Disease Social History Type Date Description Comments Sex Unknown Marital Status 2003 Lives With 07/29/2018 Alone Occupation Retired Tobacco Use Start: Unknown Never Smoked Cigarettes Smoking Status Reviewed: 08/11/18 Never Smoked Cigarettes ETOH Use 07/29/2018 Denies alcohol use Tobacco Use Start: Unknown Patient has never smoked Recreational Drug Use 07/29/2018 Denies Drug Use Exercise Type/Frequency Does not exercise Awaiting clearance to exercise Allergies, Adverse Reactions, Alerts Description No Known Drug Allergies Medications Medication Date Status Form Strength Qnty SIG Indications Ordering Provider Shingrix 08/11 Active Suspension 50mcg/0.5 2unit 0.5 Rec ML s milliliters Aide Rodrigez intramuscul M.DAntonio,FACP ar now and 2-3 months later repeat Glucosamine 08/11 Active Capsules 500-400mg 1 PO bid Aide Rodrigez Complex M.D.,FACP Crestor 08/03 Active Tablets 10mg 90tab 1 by mouth [place] s every day Sena Meneses M.D. Eliquis 01/08 Active Tablets 5mg 180ta take 1 bs tablet by Aide Rodrigez, mouth twice M.D.,FACP a day Pantoprazole Active Tablets DR 40mg Take 1 Unknown Sodium / Tablet By Mouth Every Day Nitroglycerin Active Tablets Sub 0.4mg Place 1 Unknown Tablet Under The Tongue Every 5 Minutes as Needed For Chest PA Metoprolol Active Tablets 25mg 90tab take 1/2 Vel Tartrate / s tablet by Aide Rodrigez, mouth twice M.D.,FACP daily Clopidogrel Active Tablets 75mg 90tab take 1 Vel Bisulfate / s tablet by Aide Rodrigez, mouth every M.D.,FACP day Aspir-[address] 81mg 1 by mouth Unknown /0000 every day x 1 month Started on 10/26/18 Centrum Silver Active Tablets 1 by mouth Unknown /0000 every day Felodipine ER 02/16 Hx Tablets ER 2.5mg 90tab 1 by mouth Vel /2017 24HR s every day Louie Nichols M.D.,[facility] 02/24 Amoxicillin/Clav 02/10 Hx Tablets 500-125mg 6tabs 1 by mouth Vel ulanate /2016 twice a day Aide Rodrigez Potassium - Scott,[facility] 02/13 Doxycycline 01/28 Hx Tablets 100mg 1 tab twice Cardina, Monohydrate /2016 daily Louie Villar MD 02/04 Augmentin 01/23 Hx Tablets 500-125mg 14tab 1 by mouth Vel /2016 s twice a day Louie Nichols M.D.,[facility] 02/10 week Acetaminophen ER 01/23 Hx Tablets ER 650mg 1 tab by mouth q4 Ordering - hours as Provider 02/03 needed Cephalexin 01/08 Hx Capsules 500mg 28cap 1 by mouth s four times Ordering - a day for 7 Provider Multaq 01/08 Hx Tablets 400mg 60tab 1 by mouth s twice a day Ordering - Provider 02/03 Pseudoephedrine Hx Tablets 30mg Unknown HCL /0000 - 07/22 Aspirin 00/[address] 325mg 30tab 1 by mouth Unknown /0000 s prn - 01/15 Acetaminophen Hx Tablets 325mg 100ta 2 by mouth Unknown /0000 bs as needed - 07/22 Aspirin 00 Hx Tablets 81mg 90tab 1 by mouth Unknown /0000 s every day - 01/15 Doxycycline Hx Tablets 100mg Cardina, Monohydrate / Louie Villar MD 02/10 Furosemide Hx Tablets 20mg Take 1 Unknown /0000 Tablet By - Mouth Twice 07/29 A /2017 Immunizations CPT Code Status Date Vaccine Lot # [id number] Given 07/16/2018 Influenza Virus Vaccine, Quadrivalent, Split, Preservative Free [id number] Given 07/28/2017 Influenza Virus Vaccine, Quadrivalent, Split, [id number] Preservative Free [id number] Given 07/28/2017 Pneumococcal Conjugate Vaccine 13 Valent For [id number] Intramuscular Use 62585 Given 07/28/2014 Pneumonia Vaccine Vital Signs Date Vital Result Comment 08/11/2018 2:07pm Height 68 inches 5'8" Weight 189.00 lb w/shoes Heart Rate 50 /min BP Systolic Sitting 140 mmHg LT arm BP Diastolic Sitting 62 mmHg LT arm Body Temperature 97.5 F O2 % BldC Oximetry 99 % BMI (Body Mass Index) 28.7 kg/m2 07/29/2018 3:31pm Height 68 inches 5'8" Weight 178.25 lb with shoes Heart Rate 64 /min BP Systolic Sitting 144 mmHg right arm BP Diastolic Sitting 60 mmHg right arm BMI (Body Mass Index) 27.1 kg/m2 Ejection Fraction 60% Echocardiogram 07/15/18 02/25/2018 10:13am Height 68 inches 5'8" Weight 178.00 lb w/shoes Heart Rate 70 /min BP Systolic Sitting 140 mmHg lue reg cuff BP Diastolic Sitting 60 mmHg lue reg cuff BMI (Body Mass Index) 27.1 kg/m2 Ejection Fraction 60-65% echo 09/10/2017 02/16/2018 1:52pm Height 68 inches 5'8" Weight 186.00 lb Heart Rate 59 /min BP Systolic Sitting 167 mmHg BP Diastolic Sitting 63 mmHg BP Systolic Recheck 160 mmHg BP Diastolic Recheck 78 mmHg Pain Level 1 left ear, left ring finger O2 % BldC Oximetry 96 % BMI (Body Mass Index) 28.3 kg/m2 08/03/2017 10:58am Height 68 inches 5'8" Weight 182.12 lb with shoes Heart Rate 68 /min BP Systolic Sitting 174 mmHg LA, reg cuff BP Diastolic Sitting 78 mmHg LA, reg cuff BMI (Body Mass Index) 27.7 kg/m2 Ejection Fraction 50%-55% Stan 01/07/2017 07/28/2017 9:07am Height 68 inches 5'8" Weight 189.00 lb Heart Rate 60 /min BP Systolic Sitting 118 mmHg BP Diastolic Sitting 50 mmHg Body Temperature 97.6 F O2 % BldC Oximetry 96 % BMI (Body Mass Index) 28.7 kg/m2 02/10/2017 1:56pm Heart Rate 78 /min BP Systolic 120 mmHg BP Diastolic 60 mmHg Body Temperature 97.8 F O2 % BldC Oximetry 95 % 02/03/2017 8:14am Height 66.75 inches 5'6.75" Weight 189.50 lb Heart Rate 76 /min BP Systolic Sitting 132 mmHg BP Diastolic Sitting 72 mmHg Body Temperature 98.6 F BMI (Body Mass Index) 29.9 kg/m2 08/09/2014 2:33pm Height 71 inches 5'11" Weight 192.00 lb Heart Rate 60 /min BP Systolic Sitting 124 mmHg BP Diastolic Sitting 56 mmHg Respiratory Rate 20 /min BMI (Body Mass Index) 26.8 kg/m2 Results Test Date Facility Test Result H/L Range Note Basic Metabolic 08/10/2018 [facility] Sodium 142 mmol/L N 135- [address] [place] [address] [phone] Potassium 4.9 mmol/L N 3.5-5.0 Chloride 110 mmol/L N 101-111 Co2 Carbon Dioxide 28 mmol/L N 22-32 Anion Gap 4 mmol/L N 2-11 Glucose 83 mg/dL N 70-100 Blood Urea Nitrogen 28 mg/dL High 6-24 Creatinine 1.24 mg/dL High 0.67-1.17 BUN/Creatinine Ratio 22.6 High 8-20 Calcium 8.7 mg/dL N 8.6-10.3 Egfr Non- 55.1 >60 Egfr 66.7 >60 1 Basic Metabolic Panel 07/30/2018 [facility] Sodium 145 mmol/L N 135-[address] [place] [address] [phone] Potassium 4.6 mmol/L N 3.5-5.0 Chloride 109 mmol/L N 101-111 Co2 Carbon Dioxide 30 mmol/L N 22-32 Anion Gap 6 mmol/L N 2-11 Glucose 90 mg/dL N 70-100 Blood Urea Nitrogen 36 mg/dL High 6-24 Creatinine 1.48 mg/dL High 0.67-1.17 BUN/Creatinine Ratio 24.3 High 8-20 Calcium 8.8 mg/dL N 8.6-10.3 Egfr Non- 45.0 >60 Egfr 54.4 >60 2 CBC Auto Diff 07/30/2018 [facility] White Blood 9.0 10^3/uL N 3.5-10.[address] [place] [address] [phone] Red Blood Count 3.78 10^6/uL Low 4.00-5.40 Hemoglobin 12.0 g/dL Low 14.0-18.0 Hematocrit 36 % Low 42-52 Mean Corpuscular Volume 96 fL High 80-94 Mean Corpuscular Hemoglobin 32 pg High 27-31 Mean Corpuscular HGB Conc 33 g/dL N 31-36 Red Cell Distribution Width 14 % N 10.5-15 Platelet Count 105 10^3/uL Low 150-450 Mean Platelet Volume 7.9 fL N 7.4-10.4 Abs Neutrophils 5.5 10^3/uL N 1.5-7.7 Abs Lymphocytes 2.0 10^3/uL N 1.0-4.8 Abs Monocytes 1.0 10^3/uL High 0-0.8 Abs Eosinophils 0.5 10^3/uL N 0-0.6 Abs Basophils 0.1 10^3/uL N 0-0.2 Abs Nucleated RBC 0 10^3/uL Granulocyte % 60.7 % N 38-83 Lymphocyte % 22.1 % Low 25-47 Monocyte % 11.4 % High 0-7 Eosinophil % 5.2 % N 0-6 Basophil % 0.6 % N 0-2 Nucleated Red Blood Cells % 0 Basic Metabolic Panel 07/20/2018 [facility] Sodium 143 mmol/L N 135-[address] [place] [address] [phone] Potassium 4.2 mmol/L N 3.5-5.0 Chloride 107 mmol/L N 101-111 Co2 Carbon Dioxide 28 mmol/L N 22-32 Anion Gap 8 mmol/L N 2-11 Glucose 95 mg/dL N 70-100 Blood Urea Nitrogen 29 mg/dL High 6-24 Creatinine 1.36 mg/dL High 0.67-1.17 BUN/Creatinine Ratio 21.3 High 8-20 Calcium 8.5 mg/dL Low 8.6-10.3 Egfr Non- 49.6 >60 Egfr 60.0 >60 3 CBC Auto Diff 03/16/2018 [facility] White Blood 7.6 10^3/uL N 3.5-10.[address] [place] [address] [phone] Red Blood Count 4.07 10^6/uL N 4.00-5.40 Hemoglobin 13.2 g/dL Low 14.0-18.0 Hematocrit 39 % Low 42-52 Mean Corpuscular Volume 96 fL High 80-94 Mean Corpuscular Hemoglobin 33 pg High 27-31 Mean Corpuscular HGB Conc 34 g/dL N 31-36 Red Cell Distribution Width 14 % N 10.5-15 Platelet Count 200 10^3/uL N 150-450 Mean Platelet Volume 8.9 um3 N 7.4-10.4 Abs Neutrophils 3.3 10^3/uL N 1.5-7.7 Abs Lymphocytes 3.1 10^3/uL N 1.0-4.8 Abs Monocytes 1.0 10^3/uL High 0-0.8 Abs Eosinophils 0.2 10^3/uL N 0-0.6 Abs Basophils 0 10^3/uL N 0-0.2 Abs Nucleated RBC 0 10^3/uL Granulocyte % 43.2 % N 38-83 Lymphocyte % 40.7 % N 25-47 Monocyte % 12.6 % High 0-7 Eosinophil % 3.2 % N 0-6 Basophil % 0.3 % N 0-2 Nucleated Red Blood Cells % 0.1 Comp Metabolic Panel 02/23/2018 [facility] Sodium 142 mmol/L N 139-[address] [place] [address] [phone] Potassium 4.5 mmol/L N 3.5-5.0 Chloride 110 mmol/L N 101-111 Co2 Carbon Dioxide 26 mmol/L N 22-32 Anion Gap 6 mmol/L N 2-11 Glucose 95 mg/dL N 70-100 Blood Urea Nitrogen 27 mg/dL High 6-24 Creatinine 1.13 mg/dL N 0.67-1.17 BUN/Creatinine Ratio 23.9 High 8-20 Calcium 8.9 mg/dL N 8.6-10.3 Total Protein 6.6 g/dL N 6.4-8.9 Albumin 3.8 g/dL N 3.2-5.2 Globulin 2.8 g/dL N 2-4 Albumin/Globulin Ratio 1.4 N 1-3 Total Bilirubin 0.40 mg/dL N 0.2-1.0 Alkaline Phosphatase 77 U/L N 34-104 Alt 12 U/L N 7-52 Ast 16 U/L N 13-39 Egfr Non- 61.5 >60 Egfr 79.1 >60 4 Lipid Profile 02/23/2018 [facility] Triglycerides 57 mg/dL 5 (Trig/Chol/HDL) [address] [place] [address] [phone] Cholesterol 109 mg/dL 6 HDL Cholesterol 43.6 mg/dL 7 LDL Cholesterol 54 mg/dL 8 Laboratory test 02/23/2018 [facility] TSH (Thyroid 5.34 mcIU/mL N 0.34-5.60 [address] Stim [place]orm) [place] [address] [phone] Lipid Panel - 02/23/2018 [facility] Creatine 87 U/L N 10-223 [address] Kinase(CK) [place] [address] [phone] Basic Metabolic 07/22/2017 [facility] Sodium 140 mmol/L N 133- [address] [place] [address] [phone] Potassium 4.5 mmol/L N 3.5-5.0 Chloride 108 mmol/L N 101-111 Co2 Carbon Dioxide 28 mmol/L N 22-32 Anion Gap 4 mmol/L N 2-11 Glucose 88 mg/dL N 70-100 Blood Urea Nitrogen 24 mg/dL N 6-24 Creatinine 1.10 mg/dL N 0.67-1.17 BUN/Creatinine Ratio 21.8 High 8-20 Calcium 9.1 mg/dL N 8.6-10.3 Egfr Non- 63.5 N >60 Egfr 81.6 N >60 11 1 Because ethnic data is not always readily available, this report includes an eGFR for both -Americans and non- Americans. The National Kidney Disease Education Program (NKDEP) does not endorse the use of the MDRD equation for patients that are not between the ages of 18 and 70, are , have extremes of body size, muscle mass, or nutritional status, or are non- or non-. According to the National Kidney Foundation, irrespective of diagnosis, the stage of the disease is based on the level of kidney function: Stage Description GFR(mL/min/1.73 m(2)) 1 Kidney damage with normal or decreased GFR 90 2 Kidney damage with mild decrease in GFR 60-89 3 Moderate decrease in GFR 30-59 4 Severe decrease in GFR 15-29 5 Kidney failure <15 (or dialysis) 2 Because ethnic data is not always readily available, this report includes an eGFR for both -Americans and non- Americans. The National Kidney Disease Education Program (NKDEP) does not endorse the use of the MDRD equation for patients that are not between the ages of 18 and 70, are , have extremes of body size, muscle mass, or nutritional status, or are non- or non-. According to the National Kidney Foundation, irrespective of diagnosis, the stage of the disease is based on the level of kidney function: Stage Description GFR(mL/min/1.73 m(2)) 1 Kidney damage with normal or decreased GFR 90 2 Kidney damage with mild decrease in GFR 60-89 3 Moderate decrease in GFR 30-59 4 Severe decrease in GFR 15-29 5 Kidney failure <15 (or dialysis) 3 Because ethnic data is not always readily available, this report includes an eGFR for both -Americans and non- Americans. The National Kidney Disease Education Program (NKDEP) does not endorse the use of the MDRD equation for patients that are not between the ages of 18 and 70, are , have extremes of body size, muscle mass, or nutritional status, or are non- or non-. According to the National Kidney Foundation, irrespective of diagnosis, the stage of the disease is based on the level of kidney function: Stage Description GFR(mL/min/1.73 m(2)) 1 Kidney damage with normal or decreased GFR 90 2 Kidney damage with mild decrease in GFR 60-89 3 Moderate decrease in GFR 30-59 4 Severe decrease in GFR 15-29 5 Kidney failure <15 (or dialysis) 4 Because ethnic data is not always readily available, this report includes an eGFR for both -Americans and non- Americans. The National Kidney Disease Education Program (NKDEP) does not endorse the use of the MDRD equation for patients that are not between the ages of 18 and 70, are , have extremes of body size, muscle mass, or nutritional status, or are non- or non-. According to the National Kidney Foundation, irrespective of diagnosis, the stage of the disease is based on the level of kidney function: Stage Description GFR(mL/min/1.73 m(2)) 1 Kidney damage with normal or decreased GFR 90 2 Kidney damage with mild decrease in GFR 60-89 3 Moderate decrease in GFR 30-59 4 Severe decrease in GFR 15-29 5 Kidney failure <15 (or dialysis) 5 Desirable: <150 Borderline High: 150-199 High: 200-499 Very High: >500 6 Desirable: <200 Borderline High: 200-239 High: >239 7 Low: <40 Desirable: 40-60 High: >60 8 Desirable: <100 Near Optimal: 100-129 Borderline High: 130-159 High: 160-189 Very High: >189 9 FASTING 10 FASTING 11 Because ethnic data is not always readily available, this report includes an eGFR for both -Americans and non- Americans. The National Kidney Disease Education Program (NKDEP) does not endorse the use of the MDRD equation for patients that are not between the ages of 18 and 70, are , have extremes of body size, muscle mass, or nutritional status, or are non- or non-. According to the National Kidney Foundation, irrespective of diagnosis, the stage of the disease is based on the level of kidney function: Stage Description GFR(mL/min/1.73 m(2)) 1 Kidney damage with normal or decreased GFR 90 2 Kidney damage with mild decrease in GFR 60-89 3 Moderate decrease in GFR 30-59 4 Severe decrease in GFR 15-29 5 Kidney failure <15 (or dialysis) Procedures Date Code Description Status 07/13/2018 97571 Cath PLMT&NJX L Ventriculog Img S&I Completed 06/17/2018 93215 ECHO Stress Test Incl Perf Contiuous ekg Monitoring Completed W/Phys Superv 05/11/2018 27820 ECHO Transthoracic, Real-Time 2D With Doppler And Color Completed Flow 05/11/2018 15973 ECHO Transthoracic, Real-Time 2D With Doppler And Color Completed Flow 05/05/2018 49522 Holter Monitor Review (24 hr)dr review & interp only Completed 05/04/2018 46340 ECG Monitor/Recording W/Visual Superimposition Scanning Completed 02/25/2018 01545 EKG Tracing & Interpretation Completed 10/01/2017 11887 ECHO Stress Test Incl Perf Contiuous ekg Monitoring Completed W/Phys Superv 09/10/2017 43294 ECHO Transthoracic, Real-Time 2D With Doppler And Color Completed Flow 09/02/2017 33245 Holter Monitor Review (24 hr)dr review & interp only Completed 09/01/2017 24607 ECG Monitor/Recording W/Visual Superimposition Scanning Completed 08/03/2017 52355 EKG Tracing & Interpretation Completed 01/21/2017 79647 EKG, Interpretation Only Completed 01/08/2017 21488 EKG, Interpretation Only Completed 01/07/2017 97384 Color Flow Doppler/Interp & Reprt Completed 01/07/2017 58238 Pulse Wave/Continuous-Interp.RPT Completed 01/07/2017 99419 Echocardiography, Transesophageal, Real Time W/Image 2D Completed W/W/O M-M 01/07/2017 62509 Cardioversion Completed 01/06/2017 16154 EKG, Interpretation Only Completed 01/05/2017 16583 ECHO Transthorasic Realtime 2D W Doppler & Color Flow Completed Hosp 01/02/2017 92917 EKG, Interpretation Only Completed 07/25/2015 14259 ECHO Transthorasic Realtime 2D W Doppler & Color Flow Completed Hosp 07/26/2014 87196 ECHO Transthorasic Realtime 2D W Doppler & Color Flow Completed Hosp 05/21/2010 [id number] Colonoscopy Completed Encounters Type Date Location Provider Dx Diagnosis Office Visit 07/29/2018 [facility] Beatriz Shaw NP I25.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 torres martinez 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 syndrome I48.0 Paroxysmal atrial fibrillation I10 Essential (primary) hypertension R26.89 Other abnormalities of gait and mobility I35.0 Nonrheumatic aortic (valve) stenosis R03.0 Elevated blood-pressure reading, w/o diagnosis of htn Office Visit 02/16/2018 1:40p [facility] Internal Vel Noble R55 Syncope and Sailaja Rodrigez M.D.,[facility] collapse [place] I49.5 Sick sinus syndrome R26.89 Other abnormalities of gait and mobility I10 Essential (primary) hypertension Office Visit 08/03/2017 11:00a [facility] Remington Shetty I48.0 Paroxysmal atrial Scott Meneses fibrillation I35.0 Nonrheumatic aortic (valve) stenosis L03.116 Cellulitis of left lower limb I49.5 Sick sinus syndrome I34.0 Nonrheumatic mitral (valve) insufficiency I70.8 Atherosclerosis of other arteries Office Visit 07/28/2017 9:10a [facility] Internal Vel Noble Z00.01 Encounter for Sailaja Rodrigez M.D.,[facility] general adult [place] medical exam w abnormal findings I48.0 Paroxysmal atrial fibrillation I35.0 Nonrheumatic aortic (valve) stenosis H90.3 Sensorineural hearing loss, bilateral M19.011 Primary osteoarthritis, right shoulder Z23 Encounter for immunization Office Visit 02/10/2017 2:00p [facility] Lakshmi Noble L03.116 Cellulitis of Sailaja Rodrigez M.D.,[facility] left lower limb [place] Office Visit 02/03/2017 8:00a [facility] Lakshmi Noble L03.116 Cellulitis of Sailaja Rodrigez M.D.,[facility] left lower limb [place] I48.91 Unspecified atrial fibrillation I35.0 Nonrheumatic aortic (valve) stenosis Office Visit 01/23/2017 [facility] Sue L03.119 Cellulitis of 3:50p Assocelo D.O. unspecified part Hospitalists of limb R60.0 Localized edema I48.91 Unspecified atrial fibrillation R00.1 Bradycardia, unspecified Office Visit 01/23/2017 10:46a [facility] Remington Shetty I35.0 Nonrheumatic Scott Meneses aortic (valve) stenosis I49.5 Sick sinus syndrome Office Visit 01/22/2017 10:09a [facility] Elijah Noble L03.116 Cellulitis of For Infectious [place] left lower limb Diseases B95.1 Streptococcus, group B, causing diseases classd elswhr I48.91 Unspecified atrial fibrillation R79.82 Elevated C-reactive protein (CRP) Office Visit 01/22/2017 [facility] Sue L03.119 Cellulitis of 3:50p Assoc,elo Parker D.O. unspecified part Hospitalists of limb R60.0 Localized edema I48.91 Unspecified atrial fibrillation Office Visit 01/21/2017 10:02a [facility] Elijah Noble L03.116 Cellulitis of For Infectious [place] left lower limb Diseases I48.91 Unspecified atrial fibrillation R79.82 Elevated C-reactive protein (CRP) Office Visit 01/21/2017 [facility] Nat Lyon, L03.119 Cellulitis of 3:49p Asselo mendoza M.D. unspecified part Hospitalists of limb R60.0 Localized edema Office Visit 01/20/2017 [facility] Sonali, L03.119 Cellulitis of 3:48p Asselo mendoza M.D. unspecified part Hospitalists of limb L02.619 Cutaneous abscess of unspecified foot R60.0 Localized edema Office Visit 01/08/2017 1:[facility]p [facility] I48.0 Paroxysmal atrial Assocelo M.D. fibrillation Hospitalists R74.8 Abnormal levels of other serum enzymes L03.116 Cellulitis of left lower limb Office Visit 01/07/2017 9:32a [facility] Jessica Araujo, I48.0 Paroxysmal atrial Of Angela Chavez fibrillation I35.0 Nonrheumatic aortic (valve) stenosis Office Visit 01/07/2017 1:34p [facility] Elda I48.0 Paroxysmal atrial Assoc,elo Guy M.D. fibrillation Hospitalists L03.116 Cellulitis of left lower limb Office Visit 01/07/2017 10:42a [facility] Elijah Noble L03.116 Cellulitis of For Infectious [place] left lower limb Diseases I48.91 Unspecified atrial fibrillation Office Visit 01/06/2017 1:34p [facility] Elda I48.0 Paroxysmal atrial Assoc,elo Guy M.D. fibrillation Hospitalists R74.8 Abnormal levels of other serum enzymes L03.116 Cellulitis of left lower limb Office Visit 01/05/2017 1:33p [facility] Elda L03.116 Cellulitis of Assoc,elo Guy M.D. left lower limb Hospitalists R74.8 Abnormal levels of other serum enzymes I48.0 Paroxysmal atrial fibrillation [facility] Paroxysmal atrial 1:33p Assoc,elo Rodrigez M.D.,FACP fibrillation Hospitalists L03.116 Cellulitis of left lower limb R74.8 Abnormal levels of other serum enzymes [facility] I[facility].0 Paroxysmal atrial 1:32p Assoc,elo Rodrigez M.D.,FACP fibrillation Hospitalists L03.116 Cellulitis of left lower limb A41.9 Sepsis, unspecified organism Office Visit 01/02/2017 1:31p [facility] Sue R06.00 Dyspnea, Assoc,elo Parker D.O. unspecified Hospitalists J69.0 Pneumonitis due to inhalation of food and vomit A41.9 Sepsis, unspecified organism Office Visit 07/26/2015 [facility] Prabha Dockery, G45.9 Transient 2:30p Clinic M.D. cerebral ischemic attack, unspecified Office Visit 07/26/2015 [facility] Betzaida G45.9 Transient 1:43p Assoc,elo Reid NP cerebral ischemic attack, unspecified G47.33 Obstructive sleep apnea (adult) (pediatric) I10 Essential (primary) hypertension Office Visit 07/25/2015 2:27p [facility] Prabha Dockery, R26.0 Ataxic gait M.D. R47.01 Aphasia Office Visit 07/25/2015 [facility] Anthony G45.9 Transient 1:41p Assoc,elo Small N.P. cerebral ischemic Hospitalists attack, unspecified G47.33 Obstructive sleep apnea (adult) (pediatric) I10 Essential (primary) hypertension Office Visit 08/09/2014 2:15p [facility] Ketan Chamorro 434.91 [facility] Scott Murphy Cerebral Artery Unspec W/ Cerebral Infarc Office Visit 07/27/2014 9:07p [facility] Ketan Redd 434.91 [facility] Scott Tejeda Cerebral Artery Hospitalists Unspec W/ Cerebral Infarc 327.23 Obstructive Sleep Apnea Adult & Pediatric 780.79 Malaise And Fatigue Other Office Visit 07/26/2014 10:15a [facility] Ketan Chamorro 434.91 [facility] Scott Murphy Cerebral Artery Unspec W/ Cerebral Infarc Office Visit 07/25/2014 10:14a [facility] Ketan Chamorro 434.91 [facility] Scott Murphy Cerebral Artery Unspec W/ Cerebral Infarc Office Visit 07/25/2014 9:05p [facility] Nallelyelier Ashraf, 784.51 [facility] Hospitalists 780.79 Malaise And Fatigue Other 327.23 Obstructive Sleep Apnea Adult & Pediatric Plan of Treatment Future Appointment(s):02/16/2019 2:00 pm - Gaviota Renner MD at [facility] Internal Medicine - Jpcrtzfoo98/23/2018 1:30 pm - Traveling ECHO 2 at [facility]08/19/2018 10:30 am - Nurse Visit IC at [facility] AT [facility] - Vel Rodrigez M.D.,FACPZ00.01 Encounter for general adult medical exam w abnormal findingsComments:Advised flu vaccine in fall. Routine Health Maintenance up to date. 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 We will monitor blood pressure, cholesterol, symptoms on regularbasis. Continue taking current medications as prescribed. Follow up with Dr. Meneses as planned. Advised discussing pantoprazole and cardiac rehab with cardiology.I35.0 Nonrheumatic aortic (valve) stenosisComments:Continue taking Aspirin and Clopidogrel as prescribed.I48.0 Paroxysmal atrial fibrillationComments:Continue taking Eliquis and Metoprolol as prescribed.
--- OUTSIDE RECORDS SUMMARY | 2018-08-18 23:19 | XMS REPORT ---
:1930 External Reference #:[id number] Author Organization [email or web address] Address [address] [place] [address] [address] [place] [address] Phone [phone] Care Team Providers Name Role Phone Vel Rodrigez MD Primary Care Physician Unavailable Payers Type Date Identification Numbers Payment Provider Subscriber Health Maintenance Effective: Policy Number: Medicare Blue Eugene Wong Organization (O) 09/21/2016 [id number] [facility] Group Number: [id number] [address] [address] PayID: [id number] FELIX Arteaga [id number] Advance Directives Type Date Description Status Comment Other Directive 02/16/2018 Health Care Proxy Current and Verified Problems Date Description Provider Status Onset: 08/09/2014 Cerebrovascular accident Ketan Murphy M.D. [...] Family Member(s) Problem(s) Comments Father due to AK () - at age of 62 Mother due to Colon Cancer () - at age of 72 Siblings 4 First Brother Diabetes Type II Second Brother due to Brain Cancer () - and post- WWII injuries Third Brother Kidney Disease Social History Type Date Description Comments Marital Status 2003 Lives With 07/29/2018 Alone Occupation Retired Cigarette Use Never Smoked Cigarettes ETOH Use 07/29/2018 Denies alcohol use Smoking Patient has never smoked Recreational Drug Use 07/29/2018 Denies Drug Use Daily Caffeine Comsumes on average 1 cup of decaff coffee per day Exercise Type/Frequency Does not exercise Awaiting clearance to exercise General Hx Text 3 children, 1 son with GERD Allergies, Adverse Reactions, Alerts Date Description Reaction Status Severity Comments 08/09/2014 NKDA active Medications Medication Date Status Form Strength Qnty SIG Indications Ordering Provider Indio 08/03/ Active Tablets 10mg 90tab 1 by mouth Remington 2016 s every day Sena Meneses M.D. Eliquradha 01/08/ Active Tablets 5mg 180ta take 1 Vel 2016 bs tablet by Aide Rodrigez, mouth twice M.DAntonio,FACP a day Pantoprazole / Active Tablets 40mg Take [address] Tablet By Mouth Every Day Nitroglycerin / Active Tablets 0.4mg Place 1 Unknown 0000 Sub Tablet Under The Tongue Every 5 Minutes as Needed For Chest PA Metoprolol / Active Tablets 25mg Take 1/2 Unknown Tartrate 0000 Tablet By Mouth Twice Daily Clopidogrel / Active Tablets 75mg Take 1 Unknown Bisulfate 0000 Tablet By Mouth Every Day Aspir-81 / Active Tablets 81mg 1 by mouth Unknown 0000 DR every day x 1 month Started on 07/16/18 Centrum Silver / Active Tablets 1 by mouth Unknown 0000 every day Felodipine ER 02/16/ Hx Tablets 2.5mg 90tab 1 by mouth Vel 2017 - ER 24HR s every day Aide Rodrigez, 02/24/ MHumberto,FACP 2017 Amoxicillin/Clavu 02/10/ Hx Tablets 500-125mg 6tabs 1 by mouth Narendra Alegria lanate Potassium 2017 - twice a day Aide Rodrigez, 02/13/ MHumberto,FACP 2016 Doxycycline 10/ Hx Tablets 100mg 1 tab twice Cardina, Monohydrate 2017 - daily Jian, 02/04/ 2016 Augmentin 01/23/ Hx Tablets 500-125mg 14tab 1 by mouth Vel 2017 - s twice a day Aide Rodrigez, Scott,[facility] 2017 additional week Acetaminophen ER 01/23/ Hx Tablets 650mg 1 tab by Other 2017 - ER mouth q4 Ordering 02/03/ hours as Provider 2017 needed pain Cephalexin 01/08/ Hx Capsules 500mg 28cap 1 by mouth Other 2017 - s four times Ordering 01/15/ a day for 7 Provider 2017 days Multaq 01/08/ Hx Tablets 400mg 60tab 1 by mouth Other 2017 - s twice a day Ordering 02/03/ Provider 2017 Pseudoephedrine 00/ Hx Tablets 30mg Unknown HCL 0000 - 2013 Aspirin 00/ Hx Tablets 325mg 30tab 1 by mouth Unknown 0000 - DR s prn 2016 Acetaminophen / Hx Tablets 325mg 100ta 2 by mouth Unknown 0000 - bs as needed 2013 Aspirin / Hx Tablets 81mg 90tab 1 by mouth Unknown 0000 - s every day 2016 Doxycycline / Hx Tablets 100mg Cardina, Monohydrate 0000 - Jian, 02/10/ 2016 Furosemide / Hx Tablets 20mg Take 1 Unknown 0000 - Tablet By 07/29/ Mouth Twice 2018 A Day Immunizations CPT Code Status Date Vaccine Lot # [id number] Given 07/28/2017 Influenza Virus Vaccine, Quadrivalent, Split, [id number] Preservative Free 39999 Given 07/28/2017 Pneumococcal Conjugate Vaccine 13 Valent For [id number] Intramuscular Use 53276 Given 07/28/2014 Pneumonia Vaccine Vital Signs Date Vital Result Comment 07/29/2018 Height 68 inches 5'8" Weight 178.25 lb with shoes Heart Rate 64 /min BP Systolic Sitting 144 mmHg right arm BP Diastolic Sitting 60 mmHg right arm BMI (Body Mass Index) 27.1 kg/m2 Ejection Fraction 60% Echocardiogram 07/15/18 02/25/2018 Height 68 inches 5'8" Weight 178.00 lb w/shoes Heart Rate 70 /min BP Systolic Sitting 140 mmHg lue reg cuff BP Diastolic Sitting 60 mmHg lue reg cuff BMI (Body Mass Index) 27.1 kg/m2 Ejection Fraction 60-65% echo 09/10/2017 02/16/2018 Height 68 inches 5'8" Weight 186.00 lb Heart Rate 59 /min BP Systolic Sitting 167 mmHg BP Diastolic Sitting 63 mmHg BP Systolic Recheck 160 mmHg BP Diastolic Recheck 78 mmHg Pain Level 1 left ear, left ring finger O2 % BldC Oximetry 96 % BMI (Body Mass Index) 28.3 kg/m2 08/03/2017 Height 68 inches 5'8" Weight 182.12 lb with shoes Heart Rate 68 /min BP Systolic Sitting 174 mmHg LA, reg cuff BP Diastolic Sitting 78 mmHg LA, reg cuff BMI (Body Mass Index) 27.7 kg/m2 Ejection Fraction 50%-55% Stan 01/07/2017 07/28/2017 Height 68 inches 5'8" Weight 189.00 lb Heart Rate 60 /min BP Systolic Sitting 118 mmHg BP Diastolic Sitting 50 mmHg Body Temperature 97.6 F O2 % BldC Oximetry 96 % BMI (Body Mass Index) 28.7 kg/m2 02/10/2017 Heart Rate 78 /min BP Systolic 120 mmHg BP Diastolic 60 mmHg Body Temperature 97.8 F O2 % BldC Oximetry 95 % 02/03/2017 Height 66.75 inches 5'6.75" Weight 189.50 lb Heart Rate 76 /min BP Systolic Sitting 132 mmHg BP Diastolic Sitting 72 mmHg Body Temperature 98.6 F BMI (Body Mass Index) 29.9 kg/m2 08/09/2014 Height 71 inches 5'11" Weight 192.00 lb Heart Rate 60 /min BP Systolic Sitting 124 mmHg BP Diastolic Sitting 56 mmHg Respiratory Rate 20 /min BMI (Body Mass Index) 26.8 kg/m2 Results Test Date Test Result H/L Range Note Basic Metabolic Panel 07/20/2018 Sodium 143 mmol/L 135-145 Potassium 4.2 mmol/L 3.5-5.0 Chloride 107 mmol/L 101-111 Co2 Carbon Dioxide 28 mmol/L 22-32 Anion Gap 8 mmol/L 2-11 Glucose 95 mg/dL 70-100 Blood Urea Nitrogen 29 mg/dL High 6-24 Creatinine 1.36 mg/dL High 0.67-1.17 BUN/Creatinine Ratio 21.3 High 8-20 Calcium 8.5 mg/dL Low 8.6-10.3 Egfr Non- 49.6 >60 Egfr 60.0 >60 1 CBC Auto Diff 03/16/2018 White Blood Count 7.6 10^3/uL 3.5-10.8 Red Blood Count 4.07 10^6/uL 4.00-5.40 Hemoglobin 13.2 g/dL Low 14.0-18.0 Hematocrit 39 % Low 42-52 Mean Corpuscular Volume 96 fL High 80-94 Mean Corpuscular Hemoglobin 33 pg High 27-31 Mean Corpuscular HGB Conc 34 g/dL 31-36 Red Cell Distribution Width 14 % 10.5-15 Platelet Count 200 10^3/uL 150-450 Mean Platelet Volume 8.9 um3 7.4-10.4 Abs Neutrophils 3.3 10^3/uL 1.5-7.7 Abs Lymphocytes 3.1 10^3/uL 1.0-4.8 Abs Monocytes 1.0 10^3/uL High 0-0.8 Abs Eosinophils 0.2 10^3/uL 0-0.6 Abs Basophils 0 10^3/uL 0-0.2 Abs Nucleated RBC 0 10^3/uL Granulocyte % 43.2 % 38-83 Lymphocyte % 40.7 % 25-47 Monocyte % 12.6 % High 0-7 Eosinophil % 3.2 % 0-6 Basophil % 0.3 % 0-2 Nucleated Red Blood Cells % 0.1 Lipid Profile (Trig/Chol/HDL) 02/23/2018 Triglycerides 57 mg/dL 2 Cholesterol 109 mg/dL 3 HDL Cholesterol 43.6 mg/dL 4 LDL Cholesterol 54 mg/dL 5 Laboratory test finding 02/23/2018 TSH (Thyroid Stim Horm) 5.34 mcIU/mL 0.34-5.60 6 Lipid Panel - [facility] 02/23/2018 Creatine Kinase(CK) 87 U/L 10-223 7 Comp Metabolic Panel 02/23/2018 Sodium 142 mmol/L 139-145 Potassium 4.5 mmol/L 3.5-5.0 Chloride 110 mmol/L 101-111 Co2 Carbon Dioxide 26 mmol/L 22-32 Anion Gap 6 mmol/L 2-11 Glucose 95 mg/dL 70-100 Blood Urea Nitrogen 27 mg/dL High 6-24 Creatinine 1.13 mg/dL 0.67-1.17 BUN/Creatinine Ratio 23.9 High 8-20 Calcium 8.9 mg/dL 8.6-10.3 Total Protein 6.6 g/dL 6.4-8.9 Albumin 3.8 g/dL 3.2-5.2 Globulin 2.8 g/dL 2-4 Albumin/Globulin Ratio 1.4 1-3 Total Bilirubin 0.40 mg/dL 0.2-1.0 Alkaline Phosphatase 77 U/L 34-104 Alt 12 U/L 7-52 Ast 16 U/L 13-39 Egfr Non- 61.5 >60 Egfr 79.1 >60 8 Basic Metabolic Panel 07/22/2017 Sodium 140 mmol/L 133-145 Potassium 4.5 mmol/L 3.5-5.0 Chloride 108 mmol/L 101-111 Co2 Carbon Dioxide 28 mmol/L 22-32 Anion Gap 4 mmol/L 2-11 Glucose 88 mg/dL 70-100 Blood Urea Nitrogen 24 mg/dL 6-24 Creatinine 1.10 mg/dL 0.67-1.17 BUN/Creatinine Ratio 21.8 High 8-20 Calcium 9.1 mg/dL 8.6-10.3 Egfr Non- 63.5 >60 Egfr 81.6 >60 9 1 Because ethnic data is not always [...] 5 Kidney failure <15 (or dialysis) 2 Desirable: <150 Borderline High: 150-199 High: 200-499 Very High: >500 3 Desirable: <200 Borderline High: 200-239 High: >239 4 Low: <40 Desirable: 40-60 High: >60 5 Desirable: <100 Near Optimal: 100-129 Borderline High: 130-159 High: 160-189 Very High: >189 6 FASTING 7 FASTING 8 Because ethnic data is not always readily [...] 15-29 5 Kidney failure <15 (or dialysis) 9 Because ethnic data is not always readily [...] Kidney failure <15 (or dialysis) Procedures Date CPT Code Description Status 07/13/2018 97131 Cath PLMT&NJX L Ventriculog Img S&I Completed 06/17/2018 14306 ECHO Stress Test Incl Perf Contiuous ekg Monitoring Completed W/Phys Superv 05/11/2018 83701 ECHO Transthoracic, Real-Time 2D With Doppler And Color Completed Flow 05/11/2018 61127 ECHO Transthoracic, Real-Time 2D With Doppler And Color Completed Flow 05/05/2018 69919 Holter Monitor Review (24 hr)dr awan & nataliya only Completed 05/04/2018 80050 ECG Monitor/Recording W/Visual Superimposition Scanning Completed 02/25/2018 79763 EKG Tracing & Interpretation Completed 10/01/2017 83525 ECHO Stress Test Incl Perf Contiuous ekg Monitoring Completed W/Phys Superv 09/10/2017 69794 ECHO Transthoracic, Real-Time 2D With Doppler And Color Completed Flow 09/02/2017 70781 Holter Monitor Review (24 hr)dr review & interp only Completed 09/01/2017 91771 ECG Monitor/Recording W/Visual Superimposition Scanning Completed 08/03/2017 39167 EKG Tracing & Interpretation Completed 01/21/2017 15601 EKG, Interpretation Only Completed 01/08/2017 12207 EKG, Interpretation Only Completed 01/07/2017 56710 Color Flow Doppler/Interp & Reprt Completed 01/07/2017 87784 Pulse Wave/Continuous-Interp.RPT Completed 01/07/2017 90368 Echocardiography, Transesophageal, Real Time W/Image 2D Completed W/W/O M-M 01/07/2017 97344 Cardioversion Completed 01/06/2017 57813 EKG, Interpretation Only Completed 01/05/2017 19958 ECHO Transthorasic Realtime 2D W Doppler & Color Flow Completed Hosp 01/02/2017 55090 EKG, Interpretation Only Completed 07/25/2015 74175 ECHO Transthorasic Realtime 2D W Doppler & Color Flow Completed Hosp 07/26/2014 88587 ECHO Transthorasic Realtime 2D W Doppler & Color Flow Completed Hosp 05/21/2010 Colonoscopy Completed Encounters Type Date Location Provider CPT E/M Dx Office Visit 06/17/2018 11:30a [facility] Remington Meneses, 68522 I49.5 Scott I35.2 I34.0 I27.20 Office Visit 02/25/2018 10:30a [facility] Remington Meneses, 73138 I49.5 Angela Chavez I48.0 I10 R26.89 I35.0 R03.0 Office Visit 02/16/2018 1:40p [facility] Internal Medicine Vel Rodrigez, 81150 R55 - Yajaira Chavez,FACP I49.5 R26.89 I10 Office Visit 08/03/2017 11:00a [facility] Remington Meneses M.D. 61938 I48.0 I35.0 L03.116 I49.5 I34.0 I70.8 Office Visit 07/28/2017 9:10a [facility] Internal Medicine Vel Aide Rodrigez, 90284 Z00.[facility] Yajaira Chavez,[facility] I48.0 I35.0 H90.3 M19.011 Z23 Office Visit 02/10/2017 2:00p [facility] Internal Vel Aide Rodrigez, 96366 L03.116 [facility] Yajaira Chavez,[facility] Office Visit 02/03/2017 8:00a [facility] Internal Vel Aide Rodrigez, 56593 L03.116 [facility] Yajaira Chavez,[facility] I48.91 I35.0 Office Visit 01/23/2017 3:50p [facility], Sue Parker, 36966 L03.119 Hospitalists D.OAntonio R60.0 I48.91 R00.1 Office Visit 01/23/2017 10:46a [facility] Remington Meneses M.D. 65481 I35.0 I49.5 Office Visit 01/22/2017 10:09a [facility] Lynette Noble 75161 L03.116 Infectious Diseases Scott Cross B95.1 I48.91 R79.82 Office Visit 01/22/2017 3:50p [facility], Sue Parker, 26841 L03.119 Hospitalists D.OAntonio R60.0 I48.91 Office Visit 01/21/2017 10:02a [facility] Elijah Noble 85284 L03.116 Infectious Diseases Scott Cross I48.91 R79.82 Office Visit 01/21/2017 3:49p [facility] Nat Lyon, 41390 L03.119 Assoc, Hospitalists Scott R60.0 Office Visit 01/20/2017 3:48p [facility] Nat Lyon, 69931 L03.119 Assoc, Hospitalists Scott L02.619 R60.0 Office Visit 01/08/2017 1:35p [facility], Elda Guy, 19423 I48.0 Hospitalists Scott R74.8 L03.116 Office Visit 01/07/2017 10:42a [facility] Elijah Noble 91718 L03.116 Infectious Diseases Scott Cross I48.91 Office Visit 01/07/2017 1:34p [facility], Elda Carpenterima, 34005 I48.0 Hospitalists Scott L03.116 Office Visit 01/07/2017 9:32a [facility] Jessica Araujo M.D. 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 Office Visit 01/06/2017 1:34p [facility], Eldalatasha Guy, 84120 I48.0 Hospitalists Scott R74.8 L03.116 Office Visit 01/05/2017 1:33p [facility], Elda Guy, 30075 L03.116 Hospitalists Scott R74.8 I48.0 Office Visit 01/04/2017 1:33p [facility], Vel Rodrigez, 81345 I48.0 Hospitalists Scott,FACP L03.116 R74.8 Office Visit 01/03/2017 1:32p [facility], Vel Rodrigez, 06425 I48.0 Hospitalists Scott,FACP L03.116 A41.9 Office Visit 01/02/2017 1:31p [facility], Sue Parker, 71700 R06.00 Hospitalists D.OAntonio J69.0 A41.9 Office Visit 07/26/2015 2:30p [facility] Prabha Dockery, 51144 G45.9 M.D. 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 Office Visit 07/27/2014 9:07p [facility] Ketan Redd 14175 434.91 Hospitalists Scott Tejeda 327.23 780.79 Office Visit 07/26/2014 10:15a [facility] Ketan Murphy, 29098 434.91 [facility] M.D. Office Visit 07/25/2014 10:14a [facility] Ketan Murphy, 72606 434.91 [facility] M.D. Office Visit 07/25/2014 9:05p [facility] Nallely Ashraf N.Kathy 18586 784.51 Hospitalists 780.79 327.23 Plan of Care Future Appointment(s):08/19/2018 10:30 am - Nurse Visit IC at [facility]/13/2018 1:30 pm - Traveling ECHO 1 at [facility]08/11/2018 2:20 pm - Vel Rodrigez M.D.,FACP at [facility] Internal Medicine - [address]07/29/2018 - Beatriz Shaw, GROVERI25.10 Athscl heart disease of [place] coronary artery w/o ang [id number] Essential (primary) jqmllvbbgdriU77.0 Paroxysmal atrial nfcoshlnchzvP47.0 Nonrheumatic aortic (valve) stenosisNew Xrays:VL Pseudoaneurysm Right GroinFollow up:f/u with Dr. Meneses in 3 monthsRecommendations:stop feujaC66.9 Chronic kidney disease, ftqxrnlqccjB77.4 Aneurysm of artery of lower extremityNew Xrays:VL Pseudoaneurysm Right Groin
--- NOTE | 2018-08-18 23:34 | ED ---
Neurological HPI - HPI Summary HPI Summary: This patient is a 88 year old M [facility] accompanied by his son with a chief complaint of difficulty walking and problems balancing since tonight. Pt could walk normally earlier in the day. Patient reports diarrhea, lightheaded dizziness, and weakness. Patient denies change in appetite, SOB, WILKINS , or vision changes. Pt reports he went to get up and go to the bathroom and his legs wouldnt work. Pt has a walker but he doesnt use it generally, he is able to use a tePT says that this feels similar to a past brainstem stroke. Pt s son reports that the pt had a blood test yesterday where they observed elevated creatinine. PMHX brainstem stroke, hearing difficulties, cellulitis, afib. 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 NIH: 0. Code saucedo called and ordered 23 :37. Pt was wheeled to the CT at 23:47. Home Medications Medication Instructions Recorded Confirmed Type Acetaminophen TAB* [Tylenol TAB*] 650 mg PO Q4H PRN #0 tab 01/23/17 Rx Rosuvastatin Calcium [Crestor] 10 mg PO BEDTIME 07/12/18 07/13/18 History - History of Current Complaint Chief Complaint: EDWeakness Stated Complaint: UNSTEADY GAIT Time Seen by Provider: 08/18/18 23:26 Hx Obtained From: Patient, Family/Knowledge Architect - son Onset/Duration: Sudden Onset, Started hours ago Timing: Constant Onset Severity: Severe Current Severity: Severe Pain Intensity: 0 Pain Scale Used: 0-10 Numeric Character: Lightheaded, Dizzy, Motor Weakness Associated Signs and Symptoms: Positive: Unsteady Gait, Dizziness, Diarrhea. Negative: Visual Changes - Additional Pertinent History Primary Care Physician: SHERYL - Allergy/Home Medications Allergies/Adverse Reactions: Allergies Allergy/AdvReac Type Severity Reaction Status Date / Time No Known Allergies Allergy Verified 08/18/18 23:07 Home Medications: Home Medications Apixaban* [Eliquis*] 5 mg PO BID 08/19/18 [History Confirmed 08/19/18] Aspirin 81 mg CHEW TAB* 81 mg PO DAILY 08/19/18 [History Confirmed 08/19/18] Clopidogrel TAB* [Plavix TAB*] 75 mg PO DAILY 08/19/18 [History Confirmed ] Metoprolol Tartrate TAB* [Lopressor TAB*] 12.5 mg PO BID 08/19/18 [History Confirmed 08/19/18] Pantoprazole TAB (NF) [Protonix TAB (NF)] 40 mg PO DAILY 08/19/18 [History Confirmed 08/19/18] Rosuvastatin Calcium 10 mg PO DAILY 08/19/18 [History Confirmed 08/19/18] PMH/Surg Hx/FS Hx/Imm Hx Endocrine/Hematology History: Denies: Hx Diabetes, Hx Thyroid Disease Cardiovascular History: Reports: Hx Hypertension Denies: Hx Pacemaker/ICD Respiratory History: Reports: Hx Seasonal Allergies, Hx Sleep Apnea Denies: Hx Chronic Obstructive Pulmonary Disease (COPD) Musculoskeletal History: Reports: Hx Arthritis Denies: Other Musculoskeletal History Sensory History: Reports: Hx Cataracts, Hx Contacts or Glasses, Hx Eye Injury, Hx Deafness, Hx Hearing Aid, Hx Hearing Problem Opthamlomology History: Reports: Hx Cataracts, Hx Contacts or Glasses, Hx Eye Injury Neurological History: Reports: Hx CVA Denies: Other Neuro Impairments/Disorders Psychiatric History: Denies: Hx Panic Disorder - Surgical History Surgery Procedure, Year, and Place: Cataract Surgery; Right Hand Index Finger Surgery - Immunization History Date of Tetanus Vaccine: PT STATES UNSURE Date of Influenza Vaccine: NONE Infectious Disease History: No Infectious Disease History: Denies: Hx Clostridium Difficile, Hx Hepatitis, Hx of Known/Suspected MRSA, Hx Tuberculosis, Hx Known/Suspected VRE, Traveled Outside the [place] in Last 30 Days - Family History Known Family History: Positive: Cardiac Disease - [place] (father) Family History: Colon Cancer - Social History Alcohol Use: None Substance Use Type: Reports: None Smoking Status (MU): Never Smoked Tobacco Review of Systems Negative: Blurred Vision Negative: Shortness Of Breath Positive: Diarrhea. Negative: Other - change in appetite Neurological: Other - lightheaded dizziness Positive: Weakness. Negative: Headache All Other Systems Reviewed And Are Negative: Yes Physical Exam - Summary Physical Exam Summary: Appearance: Well-appearing, Well-nourished, lying in bed comfortably Skin: Warm, dry, no obvious rash Eyes: sclera anicteric, no conjunctival pallor ENT: mucous membranes moist, pharynx appears normal Neck: Supple, nontender Respiratory: Clear to auscultation, no signs of respiratory distress Cardiovascular: Normal S1, S2. No murmurs. Normal distal pulses in tibial and radial bilaterally. Abdomen: Soft, nontender, normal active bowel sounds present Musculoskeletal: Normal, Strength/ROM Intact, Motor function in all 4 extremities is normal and symmetric. There is no rigidity or tremor noted. Neurological: A&Ox3, awake and alert, mentation is normal, speech is fluent and appropriate, Level of consciousness nml. The patient is alert and oriented. Cranial nerves are grossly intact. Gaze is conjugate and without nystagmus. There is abnormal test of skew with the patient having to refixate with alternating cover of his eyes. Peripheral vision is intact to confrontation. There are no gross sensory abnormalities to light touch. There is truncal ataxia with the patient tending to fall backwards. There is no fine motor ataxia. Gait is unsteady and the patient has to be supported or would fall backwards. Psychiatric: affect is normal, does not appear anxious or depressed NIH: 0 GCS: 15 Triage Information Reviewed: Yes Vital Signs On Initial Exam: Initial Vitals Temp Pulse Resp BP Pulse Ox 98.2 F 53 16 204/56 97 08/18/18 23:04 08/18/18 23:04 08/18/18 23:04 08/18/18 23:04 08/18/18 23:04 Vital Signs Reviewed: Yes Diagnostics - Vital Signs Vital Signs Temp Pulse Resp BP Pulse Ox 08/18/18 23:07 197/52 08/18/18 23:04 98.2 F 53 16 204/56 97 - Laboratory Result Diagrams: 08/18/18 23:42 08/18/18 23:42 Lab Statement: Any lab studies that have been ordered have been reviewed, and results considered in the medical decision making process. - Radiology CXR Radiology Interpretation Completed By: ED Physician Summary of Radiographic Findings: No acute disease, pending official report - CT Brain CT Interpretation Completed By: Radiologist Summary of CT Findings: No acute intracranial abnormality. ED physician has reviewed this report. Head CTA CT Interpretation Completed By: Radiologist Summary of CT Findings: 1. High-grade stenosis involving the proximal left cervical ICA measuring. approximately 90%. 2. 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 - EKG 01:17 Cardiac Rate: Bradycardia - 52 bpm EKG Rhythm: Sinus Bradycardia Summary of EKG Findings: P waves, QRS complex, and T waves are within normal limits, T waves and intervals are normal, no ischemic changes NIH Scale - NIH Scale Level of Consciousness: Alert/Keenly Responsive Ask Patient the Month and His/Her Age: Both Correct Ask Pt to Open/Close Eyes and Adult Ministries Director/Release Non-Paretic Hand: Both Correctly Best Gaze (Only Horizontal Eye Movement): Normal Visual Field Testing: No Visual Loss Facial Paresis-Pt to Smile & Close Eyes or Grimace Symmetry: Normal/Symmetrical Motor Function - Right Arm: No Drift-Holds 10 Seconds Motor Function - Left Arm: No Drift-Holds 10 Seconds Motor Function - Right Leg: No Drift-Holds 10 Seconds Motor Function - Left Leg: No Drift-Holds 10 Seconds Limb Ataxia-Must be out of Proportion to Weakness Present: Absent Sensory (Use Pinprick to Test Arms/Legs/Trunk/Face): Normal Best Language (Describe Picture, Name Items): No Aphasia Dysarthria (Read Several Words): Normal Extinction and Inattention: No Abnormality Total Score: 0 Course/Dx - Course Course Of Treatment: This patient is a 88 year old M presenting to [facility] accompanied by his son with a chief complaint of difficulty walking and problems balancing since tonight. Pt could walk normally earlier in the day. Patient reports diarrhea, lightheaded dizziness, and weakness. Patient denies change in appetite, SOB, WILKINS, or vision changes. An EKG reveals SB at 52 BPM, P waves, QRS complex, and T waves are within normal limits, T waves and intervals are normal, no ischemic changes. This is a normal EKG. CXR reveals, per ED physician, no acute disease. Pending official radiology report. Brain CT reveals No acute intracranial abnormality. Head CTA reveals 1. High-grade stenosis involving the proximal left cervical ICA measuring. approximately 90% . 2. 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 ED physician has reviewed this radiology report. Stewart saucedo called and ordered 23: 37. Pt was taken to the CT scan at 23:47. Test results with no significant abnormalities. In the ED course the patient was given IV fluids. We discussed patient care with Dr. Owen and they recommended admission. Consult with Dr. Brito at 03:23, does not recommend transfer to [facility] and says the pt is not a TPA candidate because of anticoagulants. Patient will be admitted to [facility]. The patient is agreeable with this plan. - Diagnoses Provider Diagnoses: CVA (cerebral vascular accident) - Physician Notifications Discussed Care Of Patient With: Marlena Owen Time Discussed With Above Provider: 01:18 Instructed by Provider To: Admit As Inpatient - Critical Care Time Critical Care Time: 30-74 min - Elderly man with a history of cerebrovascular disease presents with acute truncal ataxia suggestive of cerebellar CVA. He was not felt to be a TPA candidate due to multiple anticoagulant medications that he takes. He required consultation with stroke neurology service at [place]. Discharge - Sign-Out/Discharge Documenting (check all that apply): Patient Departure - admission - Discharge Plan Condition: Stable Disposition: ADMITTED TO [facility] Referrals: Vel Rodrigez MD [Primary Care Provider] - - Billing Disposition and Condition Condition: STABLE Disposition: Admitted to [facility] - Attestation Statements Document Initiated by Aly: Yes Documenting Scribe: Landon Mariano Provider For Whom Aly is Documenting (Include Credential): Julian Nayak MD Scribe Attestation: Landon Vera, scribed for Julian Nayak MD on 08/19/18 at 0358. Scribe Documentation Reviewed: Yes Provider Attestation: The documentation as recorded by the Landon tristan accurately reflects the service I personally performed and the decisions made by me, Julian Nayak MD Status of Scribe Document: Viewed Consult Consult: Consult with Dr. Brito at 03:23, does not recommend transfer to [facility] and says the pt is not a TPA candidate because of anticoagulants.
[2018-08-18] MEDS ORDERED: NS 0.9% 1000 ML* 1,000 ML IV ONE (23:37)
[2018-08-19 00:03] LABS: ABS Basophils 0.1 10^3/ul (0-0.2); ABS Eosinophils 0.4 10^3/ul (0-0.6); ABS Monocytes 1.1 10^3/ul (0-0.8); ABS Neutrophils 4.8 10^3/ul (1.5-7.7); ABS Nucleated RBC 0 10^3/ul; Eosinophil % 5.1 %; Hematocrit 37 % (42-52); Hemoglobin 12.3 g/dl (14.0-18.0); Lymphocyte % 23.6 %; Mean Corpuscular HGB Conc 33 g/dl (31-36); Mean Corpuscular Hemoglobin 32 pg (27-31); Mean Corpuscular Volume 95 fL (80-94); Nucleated Red Blood Cells % 0; Platelet Count 144 10^3/ul (150-450); Red Blood Count 3.85 10^6/ul (4.00-5.40); Red Cell Distribution Width 15 % (10.5-15); White Blood Count 8.3 10^3/ul (3.5-10.8)
[2018-08-19 00:13] LABS: EGFR Non-African American 54.6 (>60)
[2018-08-19 00:22] LABS: INR 1.09 (0.77-1.02)
[2018-08-19] MEDS ORDERED: Iodixanol 320 (CONTRAST) 100 ML SDV IV ONE (02:11)
[2018-08-19 02:52] LABS: Urine Appearance Clear; Urine Blood Negative (Negative); Urine Color Straw; Urine Ketones Negative (Negative); Urine Protein Negative (Negative); Urine Red Blood Cell Trace(0-2/hpf) (Absent); Urine Specific Gravity 1.011 (1.010-1.030); Urine Urobilinogen Negative (Negative); Urine White Blood Cell Trace(0-5/hpf) (Absent)
[2018-08-19] MEDS ORDERED: Acetaminophen TAB* 325 MG PO PRN (03:42)
[2018-08-19] MEDS ORDERED: Docusate CAP* 100 MG PO PRN (03:42)
[2018-08-19] MEDS ORDERED: Ondansetron INJ* 2 MG/ML VIAL IV PRN (03:42)
[2018-08-19] MEDS ORDERED: Senna TAB PO PRN (03:42)
[2018-08-19 05:44] LABS: ABS Basophils 0.1 10^3/ul (0-0.2); ABS Eosinophils 0.3 10^3/ul (0-0.6); ABS Lymphocytes 2.4 10^3/ul (1.0-4.8); ABS Neutrophils 3.5 10^3/ul (1.5-7.7); ABS Nucleated RBC 0 10^3/ul; Eosinophil % 4.5 %; Hematocrit 35 % (42-52); Hemoglobin 11.6 g/dl (14.0-18.0); Lymphocyte % 32.4 %; Mean Corpuscular HGB Conc 34 g/dl (31-36); Mean Corpuscular Hemoglobin 32 pg (27-31); Mean Corpuscular Volume 95 fL (80-94); Nucleated Red Blood Cells % 0.1; Platelet Count 147 10^3/ul (150-450); Red Blood Count 3.63 10^6/ul (4.00-5.40); Red Cell Distribution Width 14 % (10.5-15); White Blood Count 7.3 10^3/ul (3.5-10.8)
[2018-08-19 06:04] LABS: EGFR Non-African American 59.6 (>60)
[2018-08-19] MEDS: Pantoprazole TAB (NF) 40 MG TAB PO SCH (06:09)
[2018-08-19] MEDS: Metoprolol Tartrate TAB* 25 MG PO SCH ×2 (09:30→20:49)
[2018-08-19] MEDS: Apixaban* 5 MG TAB PO SCH ×2 (09:33→20:49)
[2018-08-19] MEDS: Clopidogrel TAB* 75 MG PO SCH (09:34)
--- NOTE | 2018-08-19 09:34 | HP ---
CC: Dr. Rodrigez * HISTORY AND PHYSICAL: DATE OF ADMISSION: 08/19/18 TIME OF EVALUATION: 0329 PRIMARY CARE PHYSICIAN: Dr. Rodrigez. CHIEF COMPLAINT: Difficulty ambulating. HISTORY OF PRESENT ILLNESS: This is an 88-year-old male with a past medical history of atrial fibrillation, on anticoagulation, and CVA who presents to the emergency room with having difficulty ambulating. The patient lives in a duplex with his son, his son lives above him. He states that around 8:30 this evening he tried to get up from his chair and he was having difficulty ambulating. He got to the bathroom, changed to his pyjamas and was still feeling very off balance, felt as if his legs would not move. He called his son who lives upstairs to come down and this was similar to his symptoms back in 2013 when he had a pontine stroke that his son brought him to the emergency room for further evaluation. In the emergency room, they tried to stand the patient. He was off-balance and ataxic as well. A makayla saucedo was called and the patient was worked up for acute stroke. He is stating that his left leg seems to be trembling slightly. He denies any headaches. No vision. No confusion. No other weakness. No numbness or tingling. No chest pain or shortness of breath. No nausea, vomiting, no urinary symptoms or abdominal pain. Otherwise review of system is negative. In the emergency room, the patient had labs and imaging. Telestroke was contacted after his CTA and they recommended no further neuro intervention. PAST MEDICAL HISTORY: 1. History of a recent TAVR one month ago at [place]. 2. Obstructive sleep apnea on CPAP. 3. History of pontine stroke in 2013. 4. History of paroxysmal atrial fibrillation, on anticoagulation. 5. Hard of hearing. MEDICATIONS: 1. Aspirin 81 mg p.o. daily. 2. Plavix 75 mg p.o. daily. 3. Eliquis 5 mg p.o. daily. 4. Lasix 20 mg p.o. b.i.d. 5. Metoprolol tartrate 12.5 mg p.o. b.i.d. 6. Nitroglycerin sublingual as needed. 7. Pantoprazole 40 mg . 8. Rosuvastatin 40 mg daily. ALLERGIES: No known drug allergies. SOCIAL HISTORY: The patient lives at home alone, however, his son and his live upstairs. He ambulates independently without an assistive device. He is able to climb stairs without issue. He is with two sons who are his health proxies, and Gaetano. No history of smoking, alcohol, or illicit drug use. 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 Code status full code. FAMILY HISTORY: Mother at age 70 from colon cancer. Father at age 65 from a heart attack. REVIEW OF SYSTEMS: A 14-point review of systems is as mentioned in the HPI otherwise negative. PHYSICAL EXAMINATION GENERAL: No acute distress, resting comfortably with the son at the bedside. VITALS: Temp 98.2, pulse rate 50, respiratory rate 16, oxygen saturation 90% on room air, blood pressure 120/53. HEENT: Head normocephalic. Pupils are equal and reactive. Anicteric. Oropharynx: Mucous membranes are moist. NECK: Supple. No lymphadenopathy. RESPIRATORY: Diminished breath sounds. No wheezes, rhonchi, or rales. CARDIAC: Regular rate and rhythm. Systolic murmur, most prominent at the left sternal base. ABDOMEN: Soft, nontender, and nondistended. EXTREMITIES: No clubbing, cyanosis, or edema. +1 DP. NEUROLOGIC: Alert and oriented x3. Cranial nerves II to XII intact. Negative pronator drift. Muscle strength equal and symmetric. Per ER physician he was ataxic, unable to stand and difficult with balance. LABORATORY DATA: White count 8.3, hemoglobin 12.3, hematocrit 37, platelets 144. INR is 1.09. Sodium 137, potassium 4.7, chloride 106, bicarb 25, BUN 29, creatinine 1.25. Trop is 0.01. LDL is 64. RADIOGRAPHIC DATA: Head CT: No acute intracranial abnormality. EKG: Sinus bradycardia with a rate of 52, right bundle branch block. Head CTA: High-grade stenosis involving the proximal left cervical internal carotid artery measuring approximately 90%, severe stenosis at the origin of the left vertebral artery. ASSESSMENT: This is an 88-year-old male with past medical history of CVA; afib , on anticoagulation, with a recent TAVR who presents to the emergency room with ataxia, difficulty ambulating. Ataxia, difficult ambulating. Assessment: The patient's findings are concerning for another pontine cerebellar infarct. Telerad spoke with Dr. Nayak who stated there was no neuro intervention at this time. Plan: Will admit on , obtain a swallow eval and neuro checks. We will contact Neurology for any further medication management as he is already on aspirin, Plavix, and Eliquis. We will order an MRI. I suspect he has already had echo recently since he just had a TAVR done. We will have the records sent from [place] to follow up on this and hold off on ordering an echo at this time. CHRONIC MEDICAL PROBLEMS: 1. Obstructive sleep apnea. Continue CPAP. Also order a PT consult. 2. History of paroxysmal AFib. Continue his Eliquis, metoprolol. We will hold his Lasix for now. Continue aspirin and Plavix as mentioned above. 3. GERD. We will place him on omeprazole in place of pantoprazole. 4. Hyperlipidemia. We will check his a lipid panel. Continue rosuvastatin. We will increase it to 20 from 10. 5. FEN. We will order a swallow eval and then advance to a heart-healthy diet. 6. DVT prophylaxis. The patient scores high risk. He is on Eliquis. 7. Code status. The patient states he is a full code. I suggested that he should talk with his primary care doctor once he establishes with Dr. Renner to further discuss this. PATIENT TIME: Greater than 60 minutes was spent doing the history and physical , more than half of the time spent in direct patient contact. [id number]/CPS #: [id number] MTDD
[2018-08-19] MEDS: Aspirin 81 mg CHEW TAB* 81 MG TAB.CHEW PO SCH (09:35)
--- NOTE | 2018-08-19 14:13 | PN ---
Subjective Date of Service: 08/19/18 Interval History: pr feels much better. Ataxic gait is improving Objective Active Medications: Acetaminophen (Tylenol Tab*) 650 mg PO Q4H PRN PRN Reason: FEVER/PAIN Apixaban (Eliquis*) 5 mg PO BID [facility] Last Admin: 08/19/18 09:33 Dose: 5 mg Aspirin (Aspirin 81 Mg Chew Tab*) 81 mg PO DAILY [facility] Last Admin: 08/19/18 09:35 Dose: 81 mg Atorvastatin Calcium (Lipitor*) 40 mg PO 1700 [facility] Clopidogrel Bisulfate (Plavix Tab*) 75 mg PO DAILY [facility] Last Admin: 08/19/18 09:34 Dose: 75 mg Docusate Sodium (Colace Cap*) 100 mg PO BID PRN PRN Reason: CONSTIPATION Metoprolol Tartrate (Lopressor Tab*) 12.5 mg PO Q12HR [facility] Last Admin: 08/19/18 09:30 Dose: 12.5 mg Ondansetron HCl (Zofran Inj*) 4 mg IV Q4H PRN PRN Reason: NAUSEA/VOMITING Pantoprazole Sodium (Protonix Tab (Nf)) 40 mg PO 0600 [facility] Last Admin: 08/19/18 06:09 Dose: 40 mg Senna (Senokot Tab*) 1 tab PO BID PRN PRN Reason: CONSTIPATION Vital Signs - 8 hr 08/19/18 08/19/18 08/19/18 08:00 08:30 11:48 Temperature 97.7 F 97.8 F Pulse Rate 48 50 Respiratory 14 14 22 Rate Blood Pressure 135/35 140/48 (mmHg) O2 Sat by Pulse 94 93 Oximetry Oxygen Devices in Use Now: None Appearance: 88 yo M in nAD, aAOx3 Eyes: No Scleral Icterus, PERRLA Ears/Nose/Mouth/Throat: NL Teeth, Lips, Gums, Mucous Membranes Moist Neck: NL Appearance and Movements; NL JVP, Trachea Midline Respiratory: Symmetrical Chest Expansion and Respiratory Effort, Clear to Auscultation Cardiovascular: NL Sounds; No Murmurs; No JVD Abdominal: NL Sounds; No Tenderness; No Distention, No Hepatosplenomegaly Lymphatic: No Cervical Adenopathy Extremities: No Edema, No Clubbing, Cyanosis Skin: No Nodules or Sclerosis Neurological: Alert and Oriented x 3, NL Muscle Strength and Tone, - - gait wide , ambulates with a walker with no major difficulties Result Diagrams: 08/19/18 05:39 08/19/18 05:39 Assess/Plan/Problems-Billing Assessment: 88 yo M with h/o pontine CVA 2015, TAVR+ 2 cardiac stents 5 weeks ago at [place] presents with ataxia - Patient Problems (1) CVA (cerebral vascular accident) Comment: MRI shows brainstem CVA likely in distribution of severely stenosed left vertebral artery noted on CTA Pt also has severe stenosis of L carotid Cont ASA/Eliquis /Plavix/statin cont PT likely home tomorrow. (2) Dyslipidemia Comment: LDL 55, but due to severe PAD will increase lipitor to 80 mg (3) Paroxysmal A-fib Comment: now in NSR, cont BB, Eliquis (4) CKD (chronic kidney disease) Comment: Creatinine is close to baseline ( 1.2). Continue to monitor. (5) Carotid arterial disease Comment: L internal carotid 90% occlusion. D/w Dr. Yates. Will try to set up vascular surgery f/u at d/c . (6) DVT prophylaxis Comment: elquis Status and Disposition: inpatient
[2018-08-19] MEDS ORDERED: Atorvastatin* 40 MG TAB PO SCH (17:00)
[2018-08-19] MEDS ORDERED: Atorvastatin* 80 MG TAB PO SCH (17:00)
--- NOTE | 2018-08-19 21:35 | CONS ---
NEUROLOGY CONSULTATION NOTE: DATE OF CONSULT: 08/19/18 CONSULTING PROVIDER: Dr. Marlena Owen. REASON FOR CONSULT: Difficulty ambulating. HISTORY OF PRESENT ILLNESS: Mr. 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 The stroke occurred in 2013. The patient presented to [facility] last night on 08/18/18 with sudden onset of gait ataxia. The patient's son provided most of the medical history. The son stated that the patient was in normal state of health at approximately 8:15 p.m. At 8:30, the patient was trying to get up from his chair and he was having difficulty ambulating. He was losing his gait and balance. The patient walked to the bathroom and was complaining of feeling like he was going to fall. There was no new focal weakness or paresthesias. He denied any headaches or visual disturbance. The patient was evaluated by [facility], but no actual tele conference took place and with further information that was gathered today apparently it was just a phone call consulting the vascular specialist. They recommended no further intervention. The patient had a brain CT head on 08/18/18 that showed no evidence of acute intracranial abnormality. There was no intracranial hemorrhage. He had CTA head and neck, which showed high-grade stenosis at the left ICA measuring approximately 90%. There was also severe stenosis involving the origin of the left vertebral artery. The patient had an MRI of the brain on 08/19/18 that showed a tiny focus of restricted diffusion within the left robert suggestive of acute-subacute nonhemorrhagic infarction. Of note, the patient's blood pressure on arrival to the ED last night was systolic in the 200s. The patient is on dual- antiplatelet therapy and on Eliquis 5 mg p.o. twice daily due to history of atrial fibrillation. Of note, the patient has occasional tremors of both hands at times. Gaetano, son , stated that he sometimes feels physically well when the patient goes to the gym to exercise. He does not use a walker but does shuffle when he ambulates. He denied any constipation, hallucination, or symptoms of REM sleep behavior disorder. He denied any recent falls. PAST MEDICAL HISTORY: The patient had a recent TAVR 1 month ago at the [facility]. He also had history of obstructive sleep apnea, on CPAP. He has pontine stroke in 2014. He has atrial fibrillation and he is hard of hearing. MEDICATIONS: 1. Aspirin 81 mg p.o. daily. 2. Plavix 75 mg p.o. daily. 3. Eliquis 5 mg p.o. b.i.d. 4. Metoprolol tartrate 12.5 mg p.o. b.i.d. 5. Lasix 20 mg p.o. twice daily. 6. Pantoprazole 40 mg daily. 7. Rosuvastatin 40 mg daily. ALLERGIES: No known drug allergies. FAMILY HISTORY: Mother at age 70 from colon cancer. Father is at age 65 from a heart attack. SOCIAL HISTORY: The patient lives alone at home, but his son and his daughter- in- law live upstairs. He ambulates independently without an assistive device. He is able to climb stairs without any issues. He is with 2 sons who are his healthcare proxies, and Gaetano. He denied any tobacco or alcohol use. 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 REVIEW OF SYSTEMS: A 14-point review of systems was obtained and otherwise negative except for what was mentioned in the HPI. PHYSICAL EXAM: Vitals: Temperature 98.2, pulse of 56, respiratory rate of 16, oxygen saturation of 96%, blood pressure of 158/60. General: Well-nourished, well- developed man, in no acute distress. Head: Atraumatic, normocephalic. Eyes: Conjunctivae/corneas are clear. Neck is supple and symmetrical with no carotid bruits. Lungs are clear to auscultation bilaterally. Cardiovascular: Irregular rhythm with regular rate. Extremities: Normal range of motion with no cyanosis. Skin: No skin lesions or laceration. Psych: Affect is broad and normal mood. Mild masked facies. Neurological Examination: Awake and alert, oriented to person, place, time, and general circumstances. The patient has psycho-motor slowing, but is able to repeat, name, and comprehend simple tasks. Cranial Nerves: Normal confrontation testing bilaterally. Pupils are mid range and reactive to light. Sensation is intact on the forehead, cheeks, and jaw region bilaterally. He has got a mild left facial droop. He is able to hear throughout the history process. Normal strength against resistance to shoulder shrug and tongue is symmetrical and midline with no atrophy or fasciculation. Motor, right/left: The patient has increased tone in the left upper and lower extremities. No cogwheel rigidity on examination today. He is able to move all 4 extremities against resistance except for 4/5 strength to shoulder shrug on the left as well as 4/5 strength to left hip flexion. Reflexes, right/left: Brachioradialis 2/3, biceps 2/3, triceps 2/3, patella 2/3 , ankle 1/1, plantar flexor/extensor. Sensation is intact to light touch throughout. Coordination: Normal [id number] on the right with slight motor dysmetria on the left. Gait: Spastic and antalgic gait on the left. He did have a shuffling gait with en bloc turning which took 6-7 steps to turn. DIAGNOSTIC STUDIES/LAB DATA: As mentioned above; however, the laboratory data showed a WBC of 7.3, hemoglobin of 11.6, hematocrit of 35, platelet count of 147. Sodium 138, potassium 4.5, chloride of 110, BUN of 27, creatinine 1.16. Urinalysis showed no evidence of pyuria. ASSESSMENT: Mr. Eugene Wong is a pleasant 88-year-old man with history of atrial fibrillation; aortic stenosis, status post transcatheter aortic valve replacement 1 month ago; remote right pontine stroke with residual left hemiparesis and spasticity, who presented to [facility] with acute ataxia of short duration. His symptoms nearly resolved according to his son. The patient is able to ambulate without assistance today. 1. Mild acute-subacute left pontine ischemic infarction likely due to elevated blood pressure- This is a lacunar stroke. The patient did have significantly elevated systolic blood pressure in the 200s upon admission. His blood pressure has improved. NIH Stroke Scale at this time is 0. He was not a candidate for IV tPA given that he is on anticoagulation therapy. He is a not a candidate for mechanical thrombectomy as he is outside the therapeutic window and he has no anterior large vessel occlusion to explain his deficits. 2. 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 Burton, who is a vascular surgeon at [place]. He will be more than happy to see the patient for further evaluation as early as mid next week. Please send a face sheet to [facility], attention, Dr. Burton/Dr. Jurado, phone number [phone], fax number [phone]. 3. History of atrial fibrillation, hypertension, dyslipidemia. Defer to the primary team. 4. Concern for Parkinsonism- the patient has occasional tremors (was unable to detect tremors on examination today), shuffling gait with en-bloc turning. He denied any disability related to these symptoms. I recommend close follow-up as outpatient RECOMMENDATIONS: The patient had an echo with bubble study last month, which was unremarkable. No need to repeat an echo since this type of stroke is most likely related to uncontrolled hypertension. PT/OT/MATERIAL CONTROL CLERK evaluation and treatment. The patient is already on dual-antiplatelet therapy as well as anticoagulation therapy with Eliquis. I do not recommend any further changes. He is at high risk of intracranial hemorrhage and I explained that to the patient and the son today; however, due to the recent TAVR as well as coronary artery disease, status post stent placement, the patient needs to be on dual- antiplatelet therapy according to the patient's son. Secondary stroke prevention was discussed with the patient and his son at bedside. Controlling the blood pressure is the most crucial secondary measure at this time. Please contact Dr. Burton's office in [place] to be referred for a vascular consultation. We discussed fall precautions. If the patient continues to be in a stable condition, I will recommend discharge tomorrow. He should follow- up with us as an outpatient in 4-6 weeks. TIME SPENT: I spent a total of 75 minutes and greater than 50% was spent directly reviewing the medical chart, obtaining history, examining the patient, education, counseling, discussing the treatment plan as mentioned above. [id number]/[facility] #: [id number] YASIR
[2018-08-20] MEDS: Pantoprazole TAB (NF) 40 MG TAB PO SCH (06:00)
[2018-08-20] MEDS: Metoprolol Tartrate TAB* 25 MG PO SCH (07:53)
[2018-08-20] MEDS: Aspirin 81 mg CHEW TAB* 81 MG TAB.CHEW PO SCH (08:00)
[2018-08-20] MEDS: Clopidogrel TAB* 75 MG PO SCH (08:00)
[2018-08-20] MEDS: Apixaban* 5 MG TAB PO SCH (08:00)
--- NOTE | 2018-08-20 10:03 | PN ---
Subjective Date of Service: 08/20/18 Length of Stay: 1 Days Neurology is following Mr. Wong for the evaluation and management of stroke. Interval History: He is resting comfortable. He informed me that he wants to live as long as his grand-father, 99.5 years. He denied any headache, visual disturbance, or nausea. He denied any new weakness or paresthesia. He feels back to his normal self. He denied any gait abnormality. He worked with OT this morning. He knows to use his walker from now on. Review of Systems: Denied CP, SOB, or palpitations. Objective Active Medications: Acetaminophen (Tylenol Tab*) 650 mg PO Q4H PRN PRN Reason: FEVER/PAIN Apixaban (Eliquis*) 5 mg PO BID [facility] Last Admin: 08/20/18 08:00 Dose: 5 mg Aspirin (Aspirin 81 Mg Chew Tab*) 81 mg PO DAILY [facility] Last Admin: 08/20/18 08:00 Dose: 81 mg Atorvastatin Calcium (Lipitor*) 80 mg PO 1700 [facility] Last Admin: 08/19/18 17:14 Dose: 80 mg Clopidogrel Bisulfate (Plavix Tab*) 75 mg PO DAILY [facility] Last Admin: 08/20/18 08:00 Dose: 75 mg Docusate Sodium (Colace Cap*) 100 mg PO BID PRN PRN Reason: CONSTIPATION Metoprolol Tartrate (Lopressor Tab*) 12.5 mg PO Q12HR [facility] Last Admin: 08/20/18 07:53 Dose: Not Given Ondansetron HCl (Zofran Inj*) 4 mg IV Q4H PRN PRN Reason: NAUSEA/VOMITING Pantoprazole Sodium (Protonix Tab (Nf)) 40 mg PO 0600 [facility] Last Admin: 08/20/18 06:00 Dose: 40 mg Senna (Senokot Tab*) 1 tab PO BID PRN PRN Reason: CONSTIPATION Vital Signs 08/20/18 08/20/18 07:24 07:47 Temperature Pulse Rate 50 Respiratory 20 20 Rate Blood Pressure 154/53 (mmHg) O2 Sat by Pulse 93 Oximetry Intake and Output Last 24 Hours 08/18/18 08/19/18 08/20/18 08/21/18 06:59 06:59 06:59 06:59 Intake Total 1050 1820 120 Output Total 800 Balance 250 1820 120 Weight 187 lb 11.2 oz 187 lb 11.2 oz Intake: IV Fluids 1000 Oral 50 1820 120 Output: Urine 800 Other: # Bowel Movements 1 Estimated Stool Amount Medium # Voids 2 Oxygen Devices in Use Now: None Neurology Exam: General: well nourished, well developed. Alert, cooperative, no apparent distress. HEENT: normocephalic, without obvious abnormality. Conjunctivae/corneas clear. Psych: affect-broad and normal mood. Easy to establish rapport. Neurological examination: Mental status: awake; alert and oriented to person, place, time, & general circumstances. Mild psychomotor slowing. Cranial nerves: PERRL, EOM-I, no facial asymmetry. Motor (R/L): no abnormal movements, no pronator drift. Mild increase tone in the left lower extremity. Improvement in tone in the left upper extremity. He has no tremors. No cogwheel rigidity on examination. Reflexes: symmetric 2+ in the upper extremities and 3+ in the left patellar and 1+ at the ankles. Sensation is intact to light touch throughout. Coordination: normal finger to nose and rapid alternating movements. Gait & Station: narrow based; stooped posture, less shuffling gait. Left lower extremity spastic gait. Result Diagrams: 08/19/18 05:39 08/19/18 05:39 Microbiology and Other Data: Microbiology 08/19/18 02:32 Urine Culture - Final Urine Diagnostic Imaging: MRI brain without contrast completed on 08/19/2018: small focus of restricted diffusion within the left robert suggestive of subacute non-hemorrhagic infarction. Proximal vessel ischemic change. Assessment/Plan 1. Tiny, acute-subacute left pontine infarction with subtle changes in the DWI and correlative with the ADC mapping. This is a lacunar stroke due to occlusion of the small pontine perforating arteries related to chronic uncontrolled hypertension. The patient's SBP was significantly elevated upon arrival to the ED. He is already taking DAPT with Plavix 75 mg and aspirin 81 mg daily (for CAD and recent 2 SONNY placed in [facility]), high dose atorvastatin 80 mg nightly, and Eliquis 5 mg twice daily (atrial fibrillation). We discussed stroke education and counseled him regarding secondary stroke prevention. He is aware of closely monitoring his BP and to make sure the SBP is not over 160 mmHg since he has a high risk of ischemic and hemorrhagic stroke (while on anticoagulation therapy). He has no new neurological symptoms and his deficits of "gait imbalance and ataxia" resolved. 2. High grade left ICA stenosis- Spoke with Dr. Burton, vascular surgeon in [place]. He will be more than happy to see the patient for an urgent consultation and evaluation for carotid surgery. The discussion about the risks, benefits, and alternative to surgery will be done by the vascular surgeon. The patient may not be a candidate due to his age. The patient still wants to move forward with discussing his options with the vascular specialist. Recommendation: continue DAPT. Please fax a facesheet with the patient's demographics, imaging study results, and my consultation note to: [phone]. 3. Tremors, posture instability, and mild shuffling gait- these symptoms seem less on examination today. He is at risk of developing vascular parkinsonism. Continue follow-up as outpatient. 4. Atrial fibrillation, hypertension, dyslipidemia, s/p TAVR, CAD s/p stents- overall stable. No need for repeat Echo since it was recently done. Follow-up with cardiology as outpatient. Time spent: 25 minutes.
[2018-08-20 11:34] VITALS: BP 144/50
--- NOTE | 2018-08-21 08:23 | DS ---
CC: Dr. Rodrigez; Dr. Meneses; Dr. Maris Burton; Dr. Yates * DISCHARGE SUMMARY: DATE OF ADMISSION: 08/19/18. DATE OF DISCHARGE: 08/20/18. PRIMARY CARE PROVIDER: Dr. Rodrigez. VASCULAR SURGEON: Dr. Maris Burton; [facility]; phone number [phone], Fax number [phone]. DISCHARGE DIAGNOSIS: Small acute ischemic left pontine cerebrovascular accident. SECONDARY DIAGNOSES: 1. History of recent transcatheter aortic valve replacement and cardiac stenting at [facility] within the past 5 weeks. 2. History of obstructive sleep apnea, on continuous positive airway pressure. 3. History of pontine stroke in 2013. 4. History of paroxysmal atrial fibrillation on anticoagulation. MEDICATIONS AT DISCHARGE: Include: 1. Creator was increased to 20 mg as needed from 10. Remaining medications are unchanged include: 1. Protonix 40 mg a day. 2. Metoprolol tartrate 12.5 mg b.i.d. 3. Plavix 75 mg daily. 4. Aspirin 81 mg daily. 5. Apixaban 5 mg b.i.d. LABORATORY DATA AND STUDIES PERFORMED DURING THE HOSPITAL STAY: Included: On , white blood cell count of 7.3, hemoglobin of 11.6, hematocrit of 35, and platelets of 147. Sodium was 138, potassium 4.5, chloride 110, carbon dioxide 22, BUN 27, creatinine 1.16. Cholesterol profile showed triglycerides of 69, cholesterol was about 111, LDL of 55, and HDL of 42. The patient's brain MRI obtained on 08/19/18 impression: "Small focus of restricted area within the left robert suggestive of subacute and hemorrhagic infarct. Possible proximal vascular ischemic changes". CTA of the head obtained on 08/19/18 showed high-grade stenosis involving the proximal left cervical internal carotid artery measuring 90%. 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 Ont he right, there was no significant stenosis of the carotid artery and right vertebral artery showed mild calcification of the origin of the right vertebral. Portable chest x-ray impression: "No acute cardiopulmonary disease ". HOSPITALIZATION COURSE: Eugene Wong is an 88-year-old male with history of recent TAVR, and two stents placed at [facility] for his aortic stenosis and during the evaluation of his aortic stenosis and presented to the hospital on 08/19/18 after he had a sudden onset of ataxia. His MRI shows small pontine stroke. His CT angiogram also noted severe internal carotid artery stenosis on the left and critical stenosis of the left vertebral. The patient's symptoms resolved rather quickly although he still had wide and unsteady gait. At discharge, it appears to be though a chronic problem since he had been using walker previously. He underwent physial therapy evaluation and was deemed to be a good candidate for discharge home with [facility]. It was noted that during his preoperative evaluation for TAVR. 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 Due to that his rosuvastatin dose was increased from 10 to 20 mg daily at discharge. He continues to be on optimal therapy with double antiplatelet agents including Plavix and aspirin as well as Eliquis and that was unchanged. It was also noted that the patient has heart rate in between 40 and 50 and he was on metoprolol 12.5 mg b.i.d. We will continue with the metoprolol and the patient's bradycardia was asymptomatic otherwise. At discharge, the patient was referred by Dr. Yates to Dr. Maris Burton from [facility]. Dr. Burton's office is going to call the patient with a scheduled appointment in regard to follow up of his severe stenosis of the left internal carotid artery. At discharge, the patient was recommended to follow up also with the patient's primary care doctor in 4 to 7 days. PHYSICAL EXAMINATION AT THE TIME OF DISCHARGE: Blood pressure of 154/53, heart rate of 50 and regular, respiratory rate 20, oxygen saturation 96% on room air, temperature 97.5. General: The patient is a pleasant 88-year-old male, who is in no acute distress. Alert, awake, and oriented x3. HEENT: Head: Atraumatic , normocephalic. Eyes: Pupils are equal, reactive to light and accommodation. Oropharynx is clear. Mucosa moist. Neck: Supple. No JVD. No bruits bilaterally. Cardiovascular: Regular rate and rhythm. No murmur. Respiratory : Clear to auscultation bilaterally. Abdomen: Soft, nontender. Bowel sounds are present in all 4 quadrants. Extremities: There is no edema. Pulses are + 2 bilaterally. No clubbing or cyanosis. On neuro evaluation, speech clear. Cranial nerves II to XII grossly intact. Motor strength is 5/5 bilaterally. Gait is wide, but steady with a walker. The patient is going to be discharged home with [facility] intact. [id number]/[facility] #: [id number] YASIR
== END 2018-08-20 12:00 | disposition home or self-care (01) ==
LOC: ED 23:01 → MEDTELE 08-19 03:42 → INTOOBSV 08-19 03:42 → MEDTELE 08-19 04:46
PROVIDERS: ADMIT Pediatrics; ATTEND Internal Medicine
DX: I61.3 Nontraumatic intracerebral hemorrhage in brain stem (principal); R42 Dizziness and giddiness; G47.33 Obstructive sleep apnea (adult) (pediatric); Z86.73 Personal history of transient ischemic attack (TIA), and cerebral infarction without residual deficits; R26.81 Unsteadiness on feet; R19.7 Diarrhea, unspecified; Z95.4 Presence of other heart-valve replacement; Z95.5 Presence of coronary angioplasty implant and graft; I48.0 Paroxysmal atrial fibrillation; E78.5 Hyperlipidemia, unspecified; N18.9 Chronic kidney disease, unspecified; Z79.01 Long term (current) use of anticoagulants; Z79.82 Long term (current) use of aspirin
CPT/HCPCS: 36415; 70450; 70496; 70498; 70551; 71045; 80048; 80053; 80061; 81003; 81015; 82607; 84439; 84443; 84484; 85025; 85610; 85730; 87086; 93005; 96374; 99285; A9270-GY; G0378; G8978-GP-CJ; G8979-GP-CH; G8987-GO-CI; G8988-GO-CI; G8989-GO-CI; Q9967